=== PATIENT | male | born 1945 | race Caucasian/White ===

== ENCOUNTER 2019-12-10 01:15 | Day surgery (SDC) | payer MEDICARE, OTHER, SELFPAY ==
[2019-12-07 14:11] VITALS: BMI 27.1
[2019-12-10] VITALS (33 sets, daily range): BP systolic 94–164; BP diastolic 50–90; PULSE 54–81; RESP 11–18; TEMP 36.4–37; O2SAT 94–100
--- NOTE | 2019-12-10 07:17 | SUR.PREOP ---
Patient arrives to [facility] room [address] Perdomo, at bedside. Oriented to unit, procedure explained, all questions answered, IV started, labs drawn and sent, groin shaved, vitals obtained, and consent signed.
[2019-12-10 07:29] LABS: Basophils Absolute Auto 0.1 K/mm3 (0.0-0.1); Basophils Percent Auto 0.8 % (0.2-1.2); Eosinophils Absolute Auto 0.4 K/mm3 (0-0.3); Eosinophils Percent Auto 7.1 % (0-4.4); Hematocrit 45.1 % (42.0-52.0); Hemoglobin 14.9 g/dL (14.0-18.0); Immature Granulocyte Absolute 0.02 K/mm3 (0.00-0.031); Immature Granulocyte Percent A 0.3 % (0-0.5); Lymphocytes Absolute Auto 1.89 K/mm3 (0.9-3.2); Lymphocytes Percent Auto 31.4 % (18.3-44.2); Mean Corpuscular Hemoglobin 30.5 pg (26-34); Mean Corpuscular Volume 92.2 fl (80-100); Mean Platelet Volume 10.8 fl (7.4-10.4); Monocytes Absolute Auto 0.3 K/mm3 (0.1-0.6); Monocytes Percent Auto 5.3 % (2.6-8.5); Neutrophils Absolute Auto 3.3 K/mm3 (1.3-6.7); Neutrophils Percent Auto 55.1 % (45.5-73.1); Platelet Count Result 337 k/mm3 (150-375); Red Blood Count 4.89 M/mm3 (4.6-6.20); Red Cell Distribution Width 12.9 % (11.5-14.5)
[2019-12-10 07:39] LABS: Blood Urea Nitrogen 20 mg/dL (9-20); Carbon Dioxide 27 mmol/L (22-30); Chloride 101 mmol/L (98-107); Estimated CRCL calculation 67 ml/min; Estimated Glomerular Filt Rate > 60; Glucose 103 mg/dL (75-110); Potassium 4.3 mmol/L (3.4-5.0); Sodium 135 mmol/L (137-145)
--- NOTE | 2019-12-10 08:18 | PM.IMHP ---
H&P: HPI History of Present Illness Chief complaint: chest pain, CAD Narrative: Gaurang Pfeiffer is a 74 year old male with an established history of coronary artery disease. The patient is admitted today as an outpatient electively for follow-up coronary angiography because of the recent development of symptoms that are suspicious for an compatible with angina. His history of coronary artery disease dates back to May of 2013 at which time he underwent angioplasty and stenting of the LAD and obtuse marginal branch of circumflex. He did well but redeveloped symptoms and required intervention with stenting of the proximal right coronary artery in February of 2016. Since then he has done well for the last several years. He also has hypertension and dyslipidemia. The patient contacted the office by phone indicating that he is recently redeveloped X symptoms of exertional chest pain while a ambulating and shopping with his family. He indicated the symptoms were redo public aiding his previous ischemia. For this reason a follow-up angiogram was recommended and scheduled for today. Review of Systems Constitutional: Constitutional: Reports no additional constitutional complaints Eyes: Eyes: Reports no additional eye complaints ENT: Reports system reviewed and no additional complaints, except as documented Cardiovascular: Cardiovascular: Reports chest pain Respiratory: Respiratory: Reports dyspnea on exertion Gastrointestinal: Gastrointestinal: Reports no additional gastrointestinal complaints Genitourinary: Genitourinary: Reports no additional male genitourinary complaints Musculoskeletal: Musculoskeletal: Reports no additional musculoskeletal complaints Integumentary/Breasts: Skin/Breast: Reports system reviewed and no additional complaints, except as docu Neurologic: Reports system reviewed and no additional complaints, except as documented PMFSH Social History Social History Gender identity (if verbalized by the patient): Male Meds Home Medications and Allergies Home Medications Medication Instructions Recorded Confirmed Type allopurinol 300 mg PO DAILY 12/07/19 12/07/19 History aspirin 81 mg PO DAILY 12/07/19 12/07/19 History atorvastatin [Lipitor] 40 mg PO DAILY 12/07/19 12/07/19 History celecoxib [Celebrex] 100 mg PO BID 12/07/19 12/07/19 History lisinopril 20 mg PO DAILY 12/07/19 12/07/19 History nitroglycerin [Nitrostat] 0.4 mg SUBLINGUAL Q5M PRN 12/07/19 12/07/19 History Allergies Allergy/AdvReac Type Severity Reaction Status Date / Time Penicillins Allergy Unknown SWELLING Verified 09/10/13 10:13 Vital Signs Vital Signs - 24 hr 12/10/19 07:19 Temperature 36.5 C Pulse Rate 65 Respiratory Rate 18 Blood Pressure 137/86 Pulse Oximetry 99 Exam Const: General: comfortable and no acute distress HENMT: Mouth: Yes moist mucous membranes Eyes: Sclera: sclerae normal Pupils: Equal, round and reactive pupils present Neck: Neck: supple and no JVD Thyroid: thyroid normal Resp: Effort & Inspection: normal respiratory effort Auscultation: clear to auscultation bilaterally Cardio: Rate: regular rate Rhythm: regular rhythm Other: No murmur no gallop no rub GI: GI Palp: Yes Soft to palpation Auscultation: normal bowel sounds Skin: General skin exam: normal color Extrem: General: normal to inspection H&P: Results Labs Labs: Short CBC 12/10/19 Range/Units 07:12 WBC 6.0 (4.5-10.0) K/mm3 Hgb 14.9 (14.0-18.0) g/dL Hct 45.1 (42.0-52.0) % Plt Count 337 (150-375) k/mm3 BMP 12/10/19 07:12 Sodium 135 L Potassium 4.3 Chloride 101 Carbon Dioxide 27 BUN 20 Creatinine 0.90 Glucose 103 Calcium 10.0 Assessment and Plan Additional Plan Patient with known coronary artery disease and previous interventions in all major vessels as detailed above. Recent recurrence of exertional symptoms compatible with an concerning for ischemia Will proceed with
--- NOTE | 2019-12-10 08:32 | WPDMODSED ---
Moderate Sedation Note-Pt Data Patient Data Diagnosis: Coronary artery disease with previous PCI to the LAD, OM and proximal RCA. Recent onset of exertional symptoms concerning for ischemia Present Complaint: exertional chest pain Procedure to be performed/Plan: follow-up coronary angiography Allergies Allergy/AdvReac Type Severity Reaction Status Date / Time Penicillins Allergy Unknown SWELLING Verified 09/10/13 10:13 Home Medications Medication Instructions Recorded Confirmed Type allopurinol 300 mg PO DAILY 12/07/19 12/07/19 History aspirin 81 mg PO DAILY 12/07/19 12/07/19 History atorvastatin [Lipitor] 40 mg PO DAILY 12/07/19 12/07/19 History celecoxib [Celebrex] 100 mg PO BID 12/07/19 12/07/19 History lisinopril 20 mg PO DAILY 12/07/19 12/07/19 History nitroglycerin [Nitrostat] 0.4 mg SUBLINGUAL Q5M PRN 12/07/19 12/07/19 History Current Medications: Active Medications Sodium Chloride (Normal Saline Iv) 500 mls @ 100 mls/hr IV CONT .Q5H [facility] Sedation/Anesthesia: No previous sedation/anesthesia problems (including family history). [facility] Social History Social History Gender identity (if verbalized by the patient): Male Mod Sed Physical Exam Physical Exam Pre Procedural Exam: Normal: Appearance, Neck, Throat, Airway, Lungs, Heart Size, Heart Rate, Heart Rhythm, Neuro Exam and Extremities Hours since solid foods: 12 Hours since liquid intake: 12 Internal Medicine - PN: Obj Da Vital Signs Vital Signs: Vital Signs - 24 hr 12/10/19 07:19 Temperature 36.5 C Pulse Rate 65 Respiratory Rate 18 Blood Pressure 137/86 Pulse Oximetry 99 Meds/Results Medications: Active Medications Generic Name Dose Route Start Last Admin Trade Name Freq PRN Reason Stop Dose Admin Sodium Chloride 500 mls @ 100 mls/hr 12/10/19 06:15 Normal Saline Iv IV CONT .Q5H [facility] Labs CBC & Chem 7: 12/10/19 07:12 12/10/19 07:12 Labs: Laboratory Results - last 24 hr 12/10/19 12/10/19 12/10/19 07:12 07:12 07:12 WBC 6.0 RBC 4.89 Hgb 14.9 Hct 45.1 MCV 92.2 MCH 30.5 MCHC 33.0 RDW 12.9 Plt Count 337 MPV 10.8 H Immature Gran % (Auto) 0.3 Neut % (Auto) 55.1 Lymph % (Auto) 31.4 [place] % (Auto) 5.3 Eos % (Auto) 7.1 H Baso % (Auto) 0.8 Lymph # (Auto) 1.89 [place] # (Auto) 0.3 Eos # (Auto) 0.4 H Baso # (Auto) 0.1 Abs Immat Gran (auto) 0.02 Absolute Neuts (auto) 3.3 Absolute Nucleated RBC 0.0 Nucleated RBC % 0.0 PT 13.0 INR 1.0 Sodium 135 L Potassium 4.3 Chloride 101 Carbon Dioxide 27 BUN 20 Creatinine 0.90 Estim Creat Clear Calc 67 Estimated GFR > 60 Glucose 103 Calcium 10.0 ASA Classification/Sedation ASA Classification/Sedation ASA Class: II Emergent: No Risks: Risks, benefits and alternatives explained and patient/family accepted plan for sedation. Patient re-evaluated immediately prior to sedation.
--- NOTE | 2019-12-10 09:29 | ECG_ITS ---
Measurements Intervals [place] Rate: 57 P: 5 CA: 201 QRS: 3 QRSD: 142 T: 16 QT: 429 QTc: 418 Interpretive Statements SINUS BRADYCARDIA BORDERLINE AV CONDUCTION DELAY RIGHT BUNDLE BRANCH BLOCK ABNORMAL ECG Electronically Signed On 12-10-2019 9:58:07 MANAGER OF FINANCIAL by Gerardo Huang D.O.
--- NOTE | 2019-12-10 09:33 | WPDCARDPROC ---
Cardiac Cath Procedure Note Date of procedure:: 12/10/19 Performing physician:: Samir Perdomo MD Indication:: 74-year-old gentleman with coronary artery disease and recurrent anginal symptoms Brief clinical history:: patient with a history of CAD and previous stenting of the LAD, obtuse marginal circumflex and proximal right coronary artery. Patient has been doing well for a number of years and now was reporting exertional symptoms typical of recurrent ischemia Procedure Procedure performed:: left heart catheterization with left ventriculography and coronary angiography PCI with drug-eluting stent to the proximal LAD Sedation/Medication given:: fentanyl 50 mg Versed 2 mg case start time 8:46 a.m. case end time 9:26 a.m. sedation provided by Lety Galicia RN , trained observer Access site:: right femoral artery Estimated blood loss:: 20-30 cc Procedure note:: patient was brought and lab in the postabsorptive state where the right femoral triangle was prepared in usual fashion. Anesthesia was provided with 1% lidocaine infiltrated locally. Using the modified Seldinger technique a 5 Japanese vascular sheath was placed. After this left heart catheterization was carried out. A 5 Japanese angled pigtail catheter was used to measure left-sided hemodynamics and inject of LV g in the CAIN projection following this standard 5 Japanese FL4 catheter was used to inject the left coronary artery and a JR4 catheter to inject the right coronary artery. This any angiograms were then reviewed and PCI of the proximal LAD was recommended and carried out as detailed below. Prior to PCI the patient was systemically anticoagulated with Angiomax and received a loading dose of Brilinta 180 mg. Prior to anticoagulation the 5 Japanese sheath was switched over the guidewire for 6 Japanese device. Following PCI the sheath was sutured into position the patient was taken back to the holding area for post PCI recovery in stable condition there was no evidence of a groin hematoma upon leaving the director labor standards Findings:: central aortic pressure was 118/54 left ventricle 118/0 end-diastolic pressure of 12 there is no systolic gradient upon pullback across the aortic valve. The left main coronary artery is widely patent the LAD is a moderate caliber vessel extending down to around the apex there is visible stent material in the proximal LAD which is widely patent with no loss of lumen. Proximal to this however there is a severe area of atherosclerotic stenosis of 95-99% followed by modest stenosis leading up to the origin of the previously placed stent. The circumflex is a large caliber vessel giving rise to 2 marginal branches the 2nd of these has above visible stent material in it which is widely patent with no loss of lumen the right coronary artery is large in caliber dominant to the posterior circulation there are minimal luminal irregularities in the RCA the proximal RCA his visible stent material in it from prior previous intervention and again remains widely patent with no loss of lumen the left main coronary artery was engaged with a CLS 3.0 guiding catheter and the LAD was then crossed with a 0.014 BMW coronary guidewire. The lesion was pre-dilated using the 3.0 x 20 mm emerge balloon up to 10 atmospheres and then the balloon was withdrawn. The lesion was stented using the 3.0 by 22 mm EndorphMek drug-eluting stent which was then post dilated with a 3.5 by 15 mm noncompliant balloon at 16 atmospheres. The device was placed at the target lesion with slight overlap with the previously deployed stent. At the end of this the vessel was widely patent with no residual stenosis there was no evidence of dissection perforation or distal embolization. Conclusion:: Coronary artery disease with high-grade stenosis in the proximal LAD is described above previously placed stents in the LAD, OM circumflex and proximal right coronary arteries remain widely patent norm
[2019-12-10] MEDS: SODIUM CHLORIDE 0.9% IV 1,000 ML 125 ML IV CONT (12:20)
--- NOTE | 2019-12-10 12:26 | SUR.PHASEII ---
1225 6 FR SHEATH PULLED PER PROTOCOL BY JEAN VARGAS, FIRM MANUAL PRESSURE APPLIED, NO SIGNS OF BLEEDING OR HEMATOMA NOTED, WILL CONTINUE TO MONITOR.
--- NOTE | 2019-12-10 12:27 | SUR.PHASEII ---
0989 PATIENT RETURNS TO [facility] ROOM 5 POST LHC WITH 1 STENT TO THE PROX LAD, ANGIOMAX STILL RUNNING, 6 FR SHEATH SUTURED INTO RFA. NO BLEEDING OR HEMATOMA NOTED, WILL CONTINUE TO MONITOR.
--- NOTE | 2019-12-10 12:42 | SUR.PHASEII ---
1234 PATIENT HAD A SMALL VAGAL RESPONSE DURING SHEATH PULL, 1 MG ATROPINE ADMINISTERED, FLUIDS WIDE OPEN.
--- NOTE | 2019-12-10 13:58 | SUR.PHASEII ---
1255 hemostasis achieved, 1215 Hematoma noted w right groin check. Firm manual pressure applied. Dena Ontiveros NP notified. 1245 Off manual pressure, femstop applied for steady pressure until pt is seen by either Dena or Dr. Buitrago cont to monitor closely. Pt's at bedside.
--- NOTE | 2019-12-10 14:08 | SUR.PHASEII ---
1332 right groin bruit auscultated per malou charles.
[2019-12-10] MEDS: TRAMADOL HCL 50 MG TABLET PO (14:33)
--- NOTE | 2019-12-10 14:52 | SUR.PHASEII ---
1433 Tramadol 50 mg po given for lower back pain of a 3 on a scale of 1-10. Will continue to monitor closely.
--- NOTE | 2019-12-10 15:51 | SUR.PHASEII ---
1545 Femstop removed. Will continue to monitor closely.
--- NOTE | 2019-12-10 16:40 | SUR.PHASEII ---
Patient was having difficulty urinating, 16 fr caballero placed.
--- NOTE | 2019-12-10 17:02 | SUR.PHASEII ---
1600 see pcs for further documentation
[2019-12-10] MEDS: TICAGRELOR 90 MG TABLET PO (22:16)
[2019-12-11] VITALS: PULSE 69
[2019-12-11 02:00] VITALS: PULSE 59
[2019-12-11 04:00] VITALS: PULSE 56
--- NOTE | 2019-12-11 05:11 | ECG_ITS ---
Measurements Intervals [place] Rate: 54 P: 10 OR: 200 QRS: 18 QRSD: 141 T: 30 QT: 422 QTc: 401 Interpretive Statements SINUS BRADYCARDIA BORDERLINE AV CONDUCTION DELAY RIGHT BUNDLE BRANCH BLOCK ABNORMAL ECG Electronically Signed On 12-11-2019 7:09:14 HUC by Gerardo Huang D.O.
[2019-12-11 06:00] VITALS: PULSE 55
[2019-12-11] MEDS: TICAGRELOR 90 MG TABLET PO (07:19)
[2019-12-11 07:42] VITALS: PULSE 60
[2019-12-11 07:45] VITALS: BP 137/75; PULSE 60; RESP 12; O2SAT 100
--- NOTE | 2019-12-11 10:58 | PM.DS ---
DS: Diagnosis Admitting Diagnosis Admitting Diagnosis: Exertional angina with a history of known coronary artery disease previous interventions. Discharge Diagnosis (1) CAD (coronary artery disease): Qualifiers: Associated angina: without angina Coronary Disease-Associated Artery/Lesion type: [place] artery [place] vs. transplanted heart: [place] heart Qualified Code(s): I25.10 - Atherosclerotic heart disease of [place] coronary artery without angina pectoris Code(s): I25.10 - Atherosclerotic heart disease of [place] coronary artery without angina pectoris Status: Acute Assessment and Plan: Cardiac catheterization 12/10/2019: High-grade stenosis in the proximal LAD. Previously placed stents in the LAD, circumflex and proximal right coronary arteries remained widely patent. Normal left ventricular systolic function. (2) Presence of drug-eluting stent in anterior descending branch of left coronary artery: Code(s): Z95.5 - Presence of coronary angioplasty implant and graft Status: Acute Assessment and Plan: Successful PCI the proximal LAD using a 3 x 22 mm [place] drug-eluting stent. Continue aspirin, Brilinta and atorvastatin. DS: Summary Hospital Course Reason for hospitalization: Stable angina History of coronary artery disease Hospital Course: 74-year-old gentleman with coronary artery disease and recurrent anginal symptoms. He was brought to the cardiac catheterization lab with a significant findings of: High-grade stenosis in the proximal LAD. Previously placed stents in the LAD, obtuse marginal circumflex and proximal right coronary arteries remained widely patent. Normal left ventricular systolic function. He underwent successful PCI of the proximal LAD stenosis using a 3 x 22 mm [place] drug-eluting stent. Brilinta was added to his regimen. He was monitored overnight. He had no chest discomfort or shortness of breath. Right femoral site was without swelling or bleeding. Scant ecchymosis. No femoral bruit. Distal pulses intact. He was discharged home in stable and pain-free condition. Status at Discharge Functional status at discharge: independent ambulation Overall status at discharge: patient is back to baseline Time Spent with Patient Time attestation: Total time spent providing and/or coordinating discharge services: 35 minutes Time spent: Greater than 30 minutes Exam Const: General: cooperative and comfortable Orientation/consciousness: patient oriented x3 Limitations: no limitations HENMT: Head: normal to inspection Ears: hearing grossly normal bilaterally Eyes: General: appearance normal, both eyes and all related structures Neck: Neck: no JVD Chest: Chest palpation & inspection: normal inspection of the chest Resp: Effort & Inspection: normal respiratory effort and able to speak in complete sentences Auscultation: clear to auscultation bilaterally Cardio: Jugular venous distension: no JVD Rate: regular rate Rhythm: regular rhythm Peripheral pulses: Peripheral pulses 2+ throughout Other: Right femoral site without swelling or bleeding. Scant areas of ecchymosis. No femoral bruit. Distal pulses intact. GI: GI Palp: Yes Soft to palpation Auscultation: normal bowel sounds Skin: General skin exam: normal color Lesions: no lesions Rashes: no rashes Neuro: General: patient oriented x3 Cognition (Neuro): normal cognition Speech: normal speech Gait exam (Neuro): Normal gait present Extrem: General: normal to inspection and no pedal edema Psych: Appearance: grossly normal Mental Status: mental status grossly normal Speech and movement: Normal speech and movement present Affect: normal affect Attitude: cooperative Thought process: Normal thought process present Insight: Good insight present (Psych) Discharge Plan Discharge Patient Disposition: Home, Self-Care Discharge Instructions: ACTIVITY: No driving for 24 hours. No lifting, pushi
--- NOTE | 2019-12-11 12:06 | PC.NURSE ---
1130-pt given D/C orders and instructions. Questions answered and verbalized understanding. AOx4. Groin soft and non-tender, no evidence of bleeding or hematoma noted. Very limited bruising which has not changed. Strong right pedal pulse noted. Taken via wheelchair to waiting vehicle. no distress noted or vocalized at time of departure.
== END 2019-12-11 10:58 | disposition home or self-care (01) ==
LOC: ANHCATHLAB 07:00 → ANHCPC 16:40
PROVIDERS: Visit Provider Specialist
PROC: 4A023N7 Measurement of Cardiac Sampling and Pressure, Left Heart, Percutaneous Approach (ICD-10-PCS; CPT 93452; principal; 2019-12-10 08:30)
DX: I25.10 Atherosclerotic heart disease of native coronary artery without angina pectoris (principal); Z95.5 Presence of coronary angioplasty implant and graft; I10 Essential (primary) hypertension; E78.5 Hyperlipidemia, unspecified; Z79.82 Long term (current) use of aspirin
CPT/HCPCS: 36415; 80048; 85025; 85610; 93005; 93458; A9270; C1725; C1769; C1874; C1887; C1894; C9600; J0461; J0583; J1644; J2250; J3010; J7030; J7040

== ENCOUNTER 2020-02-04 08:30 | Outpatient (RCR) | payer MEDICARE, OTHER, SELFPAY ==
[2020-01-11 11:44] VITALS: PULSE 62
--- NOTE | 2020-02-06 09:24 | PCCPR ---
Program is temporarily suspended due to COVID outbreak.
--- NOTE | 2020-02-13 11:01 | PCCPR ---
Called patient in regards to the temporary closure of our department continuing until at least March 13. Patient is doing well. He states he has been doing a lot of home projects which means he is going up and down the stairs frequently to get tools and supplies. Encouraged at least 150 min of aerobic activity per week. He had no further questions. Patient provided us with an email address and we will email out temporary home exercise information. Will continue to follow patient weekly.
--- NOTE | 2020-02-20 09:40 | PCCPR ---
Called Dilip today to check in. Dilip stated that he did receive the exercise guidelines and is walking at home several days a week. He stated that he is doing well and staying home.
--- NOTE | 2020-02-26 10:05 | PCCPR ---
Spoke with Dilip states he is doing well. States he has been keeping busy doing things around the house mostly. He is push mowing the yard with a self propelled mower and on off days doing some walking outdoors as weather permits.He did get our package of materials however has not started any strength trng. He feels he has been plenty active. He denies taking any b/p reading or Hr encouraged to do so. explained a staff member will be trying to contact him weekly until we know more about being to resume our services.
--- NOTE | 2020-03-05 13:26 | PCCPR ---
Weekly update call-No questions or concerns at this time.
--- NOTE | 2020-03-12 13:01 | PCCPR ---
Weekly update call-informed patient of continued closure through the month of March due to the extension of the residential in place order. No questions at this time.
--- NOTE | 2020-03-27 12:50 | PCCPR ---
Starting Bi-Weekly Calls. Spoke with patient. No questions or concerns at this time.
--- NOTE | 2020-04-10 13:23 | PCCPR ---
Called Dilip today to check in regarding home exercise. He stated that he is feeling well and exercising on a regular basis, no questions at this time.
== END 2020-02-04 23:59 | disposition home or self-care (01) ==
LOC: ANHCPREHAB 08:30
PROVIDERS: Visit Provider Specialist
DX: Z95.5 Presence of coronary angioplasty implant and graft (principal)
CPT/HCPCS: 93798

== ENCOUNTER 2020-07-16 09:00 | Outpatient (RCR) | payer MEDICARE, OTHER, SELFPAY | END 2020-07-16 18:47 | disposition home or self-care (01) | LOC: ANHCPREHAB 09:00 | PROVIDERS: Visit Provider Specialist | DX: Z95.5 Presence of coronary angioplasty implant and graft (principal) | CPT/HCPCS: 93798 ==

== ENCOUNTER 2021-01-05 23:01 | Emergency (ER) | payer MEDICARE, OTHER, SELFPAY ==
--- NOTE | ~2021-01-05 | XR_ITS ---
EXAMINATION: XR chest 2V DATE: 01/05/2021 23:36 INDICATION: Left lateral chest wall pain. TECHNIQUE: Frontal and lateral views of the chest were obtained. COMPARISON: Chest 2 views 09/10/2013, CT abdomen and pelvis 04/05/2016 FINDINGS: The chest demonstrates clear lungs without pneumonia, pleural effusion, or pneumothorax. Th e heart size is normal. Surgical clips in the right upper quadrant are likely from cholecystectomy. IMPRESSION: 1. No acute cardiopulmonary disease. Reviewed, dictated and finalized at location A. GEMENT QUALITY CONSULTANT
[2021-01-05 23:05] VITALS: PULSE 69; RESP 18; O2SAT 98
--- NOTE | 2021-01-05 23:09 | ECG_ITS ---
Measurements Intervals [place] Rate: 66 P: 12 FL: 185 QRS: -17 QRSD: 136 T: 25 QT: 384 QTc: 405 Interpretive Statements SINUS RHYTHM RIGHT BUNDLE BRANCH BLOCK BASELINE ARTIFACT- I, II, AVR, V4-V6 ABNORMAL ECG Electronically Signed On 01-06-2021 7:54:14 YARDAGE ESTIMATOR by Gerardo Huang D.O.
[2021-01-05 23:10] VITALS: PULSE 71
[2021-01-05 23:17] VITALS: PULSE 65; RESP 15; O2SAT 97
[2021-01-05 23:20] LABS: Basophils Percent Auto 0.4 % (0.2-1.2); Eosinophils Absolute Auto 0.3 K/mm3 (0-0.3); Eosinophils Percent Auto 3.8 % (0-4.4); Hematocrit 46.5 % (42.0-52.0); Hemoglobin 15.2 g/dL (14.0-18.0); Immature Granulocyte Absolute 0.02 K/mm3 (0.00-0.031); Immature Granulocyte Percent A 0.3 % (0-0.5); Lymphocytes Absolute Auto 1.95 K/mm3 (0.9-3.2); Lymphocytes Percent Auto 24.7 % (18.3-44.2); Mean Corpuscular HGB Conc 32.7 g/dl (32-36); Mean Corpuscular Hemoglobin 30.9 pg (26-34); Mean Corpuscular Volume 94.5 fl (80-100); Mean Platelet Volume 10.5 fl (7.4-10.4); Monocytes Absolute Auto 0.4 K/mm3 (0.1-0.6); Monocytes Percent Auto 4.8 % (2.6-8.5); Neutrophils Absolute Auto 5.2 K/mm3 (1.3-6.7); Platelet Count Result 354 k/mm3 (150-375); Red Blood Count 4.92 M/mm3 (4.6-6.20); Red Cell Distribution Width 12.8 % (11.5-14.5); White Blood Count 7.9 K/mm3 (4.5-10.0)
[2021-01-05 23:32] LABS: Anion Gap 5 mmol/L (8-16); Blood Urea Nitrogen 22 mg/dL (9-20); Carbon Dioxide 29 mmol/L (22-30); Chloride 106 mmol/L (98-107); Estimated CRCL calculation 66 ml/min; Estimated Glomerular Filt Rate > 60; Glucose 121 mg/dL (75-110); Potassium 3.8 mmol/L (3.4-5.0); Sodium 140 mmol/L (137-145)
[2021-01-05 23:44] LABS: Troponin I < 0.012 ng/mL (0.000-0.034)
[2021-01-05 23:46] VITALS: PULSE 61; RESP 15; O2SAT 97
[2021-01-05 23:55] LABS: Alanine Aminotransferase 28 U/L (4-50); Albumin Level 4.1 g/dL (3.5-5.1); Alkaline Phosphatase 53 U/L (38-126); Aspartate Amino Transferase 29 U/L (17-59); Bilirubin,Total 0.4 mg/dL (0.2-1.3); Lipase 139 U/L (23-300)
[2021-01-06] VITALS (19 sets, daily range): BP systolic 133–172; BP diastolic 70–93; PULSE 59–66; RESP 10–19; O2SAT 95–100
[2021-01-06 00:03] LABS: NT Pro B Type Natriuretic Pept 52 PG/ML (5-100)
[2021-01-06 00:06] LABS: INR 0.9; Partial Thromboplastin Time 29.2 SECONDS (22.3-36.8)
--- NOTE | 2021-01-06 00:11 | ED.GENADULT ---
HPI - General Adult General Chief complaint: Chest Pain Stated complaint: chest pain/ tightness Time Seen by Provider: 01/05/21 23:14 History of Present Illness HPI narrative: Patient is a 75-year-old gentleman who presents the emergency department with chief complaint of chest discomfort. Patient reports this evening he started having some pressure in his chest. Patient reports he took some sublingual nitro and reported that ultimately the pain has essentially resolved by the time he is arrived in the ER. Patient reports he has prior history of cardiac disease and has several stents his last one was placed and November 2019. Related Data Home Medications Medication Instructions Recorded Confirmed allopurinol 300 mg PO DAILY 12/07/19 01/11/20 aspirin 81 mg PO DAILY 12/07/19 01/11/20 atorvastatin [Lipitor] 40 mg PO DAILY 12/07/19 01/11/20 lisinopril 20 mg PO DAILY 12/07/19 01/11/20 nitroglycerin [Nitrostat] 0.4 mg SUBLINGUAL Q5M PRN 12/07/19 01/11/20 acetaminophen [Acetaminophen Extra 500 mg PO Q6H PRN 01/11/20 01/11/20 Strength] docusate sodium [Dulcolax Stool 100 mg PO DAILY 01/11/20 01/11/20 Softener (dss)] tamsulosin [Flomax] 0.4 mg PO DAILY 01/11/20 01/11/20 Allergies Allergy/AdvReac Type Severity Reaction Status Date / Time Penicillins Allergy Unknown SWELLING Verified 01/05/21 23:09 Review of Systems Review of Systems: Narrative: A 10 system review of systems was completed on the patient and is negative except for what is stated in the HPI. Nursing and ancillary documentation was reviewed. [facility] Family History Family History Father Acute myocardial infarction Coronary artery disease involving coronary bypass graft Sibling Stented coronary artery Sibling Stented coronary artery Social History Social History Smoking packs per day: 1.5 Smoking cigarettes per day: 30.0 Years smoked: 15 Smoking pack-years: 22.50 Smoking status: Former smoker Tobacco type: cigarettes Gender identity (if verbalized by the patient): Male Comments Past medical history significant coronary artery disease hypertension and hyperlipidemia Exam Narrative: Exam Narrative: GENERAL: Well-appearing, well-nourished, and in no acute distress. HEAD: Normocephalic, atraumatic. EYES: PERRLA and EOMI. ENT: Nares clear, no rhinorrhea or epistaxis. Mucous membranes moist. NECK: Supple. CHEST: Clear to auscultation. No respiratory distress. HEART: Regular rate and rhythm. No murmur heard. Normal peripheral pulses. ABDOMEN: Soft, nontender, nondistended, normal active bowel sounds. EXTREMITIES: Normal range of motion. No edema. SKIN: Warm, dry, no rash. NEURO: No focal deficits. Alert and oriented x3. PSYCH: Normal mood and affect. Course Course Emergency Course: EKG shows sinus rhythm with a rate of 66 right bundle branch block. This is unchanged from previous EKGs there is no evidence of ST elevation or depression Vital Signs Vital signs: Vital Signs Pulse Rate 69 01/05/21 23:05 Respiratory Rate 18 01/05/21 23:05 Pulse Oximetry 98 01/05/21 23:05 Pulse Rate 60 01/06/21 02:15 Respiratory Rate 17 01/06/21 02:15 Blood Pressure 155/73 H 01/06/21 02:02 Pulse Oximetry 98 01/06/21 02:15 Medical Decision Making Vital Signs Vital Signs: Vital Signs Pulse Rate 69 01/05/21 23:05 Respiratory Rate 18 01/05/21 23:05 Pulse Oximetry 98 01/05/21 23:05 Pulse Rate 60 01/06/21 02:15 Respiratory Rate 17 01/06/21 02:15 Blood Pressure 155/73 H 01/06/21 02:02 Pulse Oximetry 98 01/06/21 02:15 Lab Data Result diagrams: 01/05/21 23:13 01/05/21 23:13 Labs: Lab Results 01/05/21 01/05/21 01/05/21 Range/Units 23:13 23:13 23:13 WBC 7.9 (4.5-10.0) K/mm3 RBC 4.92 (4.6-6.20) M/mm3 Hgb 15.2 (14.0-18.0)
[2021-01-06 02:43] LABS: Troponin I < 0.012 ng/mL (0.000-0.034)
== END 2021-01-06 02:55 | disposition home or self-care (01) ==
PROVIDERS: Emergency Provider Emergency Medicine
DX: R07.89 Other chest pain (principal); I51.9 Heart disease, unspecified; Z95.5 Presence of coronary angioplasty implant and graft; Z87.891 Personal history of nicotine dependence; Z79.82 Long term (current) use of aspirin; I45.10 Unspecified right bundle-branch block
CPT/HCPCS: 36415; 71046; 80048; 80076; 83690; 83880; 84484; 85025; 85610; 85730; 93005; 99284

== ENCOUNTER 2022-04-07 23:35 | Emergency (ER) | payer MEDICARE, OTHER, SELFPAY ==
--- NOTE | ~2022-04-07 | CT_ITS ---
EXAMINATION: CT abdomen pelvis w con DATE: 04/08/2022 02:19 INDICATION: Left flank pain. TECHNIQUE: Computed tomography (CT) of the abdomen and pelvis was performed with 75 mL Omnipaque 300 intravenous contrast. Automated exposure control and iterative reconstruction technique were employed . The dose-length product was 613.47 mGy-cm. COMPARISON: CT abdomen and pelvis 04/05/2016 FINDINGS: The visualized portions of the lung bases demonstrate mild atelectasis. No pleural effusion . The heart size is normal. There are coronary artery calcifications. No pericardial effusion. There are cysts in the liver measuring up to 17 mm. There are changes of cholecystectomy. The spleen, pancr eas, adrenal glands, and right kidney are normal. There is a delayed left-sided contrast nephrogram. There is mild left hydronephrosis. There is a 7 mm stone in proximal left ureter. The prostate is sev erely enlarged. There is diverticulosis of the colon without evidence of diverticulitis. The appendix is normal. There are no pathologically enlarged lymph nodes. There is no free intraperitoneal fluid. There is an umbilical hernia containing fat. There are a few scattered benign bone islands. There is severe thoracic and lumbar spondylosis. IMPRESSION: 1. 7 mm stone in proximal left ureter with mild left hydronephrosis. Reviewed, dictated and finalized at location A.
--- NOTE | ~2022-04-07 | XR_ITS ---
EXAMINATION: XR abdomen/kub 1V DATE: 04/08/2022 03:52 INDICATION: Ureterolithiasis. TECHNIQUE: A supine view of the abdomen on 2 radiographs was obtained. COMPARISON: CT abdomen and pelvis 04/08/2022 FINDINGS: There are no dilated loops of bowel. Surgical clips in the right upper quadrant are likely from cholecystectomy. There is contrast in the renal collecting system. There is a 7 mm stone in prox imal left ureter with mild left hydronephrosis. IMPRESSION: 1. 7 mm stone in proximal left ureter with mild left hydronephrosis. Reviewed, dictated and finalized at location A.
[2022-04-07 23:44] VITALS: BP 199/85; PULSE 71; RESP 20; TEMP 36.1; O2SAT 99
[2022-04-08] VITALS (8 sets, daily range): BP systolic 143–152; BP diastolic 61–73; PULSE 60–78; RESP 12–22; O2SAT 94–98
--- NOTE | 2022-04-08 00:22 | ED.ABDPAIN ---
HPI - Abdominal Pain General Chief Complaint: Abdominal Pain Stated Complaint: lt flank pain no radiation Time Seen by Provider: 04/08/22 00:06 Source: patient Mode of arrival: ambulatory Limitations: no limitations History of Present Illness HPI narrative: This is a 76 year old male that presents to the ER for left sided flank pain. Present over the last couple of hours. Reports the pain is sharp and constant in nature. Associated with nausea. No known alleviating or exacerbating factors. Denies fever, vomiting, dysuria, hematuria, or diarrhea. Related Data Home Medications Medication Instructions Recorded Confirmed allopurinol 300 mg tablet 300 mg PO DAILY 12/07/19 01/11/20 aspirin 81 mg chewable tablet 81 mg PO DAILY 12/07/19 01/11/20 atorvastatin 40 mg tablet (Lipitor) 40 mg PO DAILY 12/07/19 01/11/20 lisinopril 20 mg tablet 20 mg PO DAILY 12/07/19 01/11/20 nitroglycerin 0.4 mg sublingual 0.4 mg sublingual Q5M PRN Chest 12/07/19 01/11/20 tablet (Nitrostat) Pain acetaminophen 500 mg tablet 500 mg PO Q6H PRN Pain 01/11/20 01/11/20 (Acetaminophen Extra Strength) docusate sodium 100 mg capsule 100 mg PO DAILY 01/11/20 01/11/20 (Dulcolax Stool Softener (docusate)) tamsulosin 0.4 mg capsule (Flomax) 0.4 mg PO DAILY 01/11/20 01/11/20 Allergies Allergy/AdvReac Type Severity Reaction Status Date / Time Penicillins Allergy Unknown SWELLING Verified 01/05/21 23:09 Review of Systems Review of Systems: CONSTITUTIONAL: Denies fever GASTROINTESTINAL: Reports flank pain, nausea. Denies vomiting, or diarrhea. GENITOURINARY: Denies dysuria or hematuria. SKIN: Denies rash All systems reviewed & are unremarkable except as noted in HPI and below PMFSH Past Medical History Medical History (Updated 04/08/22 @ 03:10 by Dorothy Herr PA-C) CAD (coronary artery disease) Family History Family History Father Acute myocardial infarction Coronary artery disease involving coronary bypass graft Sibling Stented coronary artery Sibling Stented coronary artery Social History Social History Smoking packs per day: 1.5 Smoking cigarettes per day: 30.0 Years smoked: 15 Smoking pack-years: 22.50 Smoking status: Former smoker Tobacco type: cigarettes Gender identity (if verbalized by the patient): Male Exam Narrative: GENERAL: Well-appearing, well-nourished, and in no acute distress. HEAD: Normocephalic, atraumatic. EYES: EOMI. CHEST: Clear to auscultation. No respiratory distress. No wheezes rales or rhonchi HEART: Regular rate and rhythm. No murmur heard. Normal peripheral pulses. ABDOMEN: Soft, nontender, nondistended, normal active bowel sounds. No CVA tenderness EXTREMITIES: Normal range of motion. No edema. SKIN: Warm, dry, no rash. NEURO: No focal deficits. Alert and oriented x3. PSYCH: Normal mood and affect Course Consultations Consultation #1: Spoke with Dr. Park about patient and workup. Patient will be given pain medication and follow up for definitive management outpatient Date: 04/08/22 Vital Signs Vital signs: Vital Signs Temperature 97 F L 04/07/22 23:44 Pulse Rate 71 04/07/22 23:44 Respiratory Rate 20 04/07/22 23:44 Blood Pressure 199/85 H 04/07/22 23:44 Pulse Oximetry 99 04/07/22 23:44 Oxygen Delivery Room Air 04/07/22 23:44 Temperature 97 F L 04/07/22 23:44 Pulse Rate 60 04/08/22 03:18 Respiratory Rate 18 04/08/22 03:18 Blood Pressure 143/61 H 04/08/22 03:18 Pulse Oximetry 97 04/08/22 03:18 Oxygen Delivery Room Air 04/07/22 23:44 MDM - Abdominal Pain MDM Narrative Medical decision making narrative: Patient presents to the ER for left sided flank pain present since last night. He is afebrile and nontoxic appearing. Hypertensive upon arrival. This improved with treatment of pain. Otherwise vitals are stable
[2022-04-08] MEDS: ONDANSETRON INJ 4 MG/2 ML VIAL IV PUSH (00:42)
[2022-04-08] MEDS: MORPHINE SULFATE (*CRX) 2 MG/ML INJ IV PUSH (00:42)
[2022-04-08 00:53] LABS: Basophils Absolute Auto 0.1 K/mm3 (0.0-0.1); Basophils Percent Auto 0.6 % (0.2-1.2); Eosinophils Absolute Auto 0.2 K/mm3 (0-0.3); Eosinophils Percent Auto 2.9 % (0-4.4); Hematocrit 45.5 % (42.0-52.0); Hemoglobin 14.5 g/dL (14.0-18.0); Immature Granulocyte Absolute 0.03 K/mm3 (0.00-0.031); Immature Granulocyte Percent A 0.4 % (0-0.5); Lymphocytes Absolute Auto 1.51 K/mm3 (0.9-3.2); Lymphocytes Percent Auto 18.7 % (18.3-44.2); Mean Corpuscular HGB Conc 31.9 g/dl (32-36); Mean Corpuscular Hemoglobin 30.5 pg (26-34); Mean Corpuscular Volume 95.8 fl (80-100); Mean Platelet Volume 10.6 fl (7.4-10.4); Monocytes Absolute Auto 0.4 K/mm3 (0.1-0.6); Monocytes Percent Auto 4.6 % (2.6-8.5); Neutrophils Absolute Auto 5.9 K/mm3 (1.3-6.7); Neutrophils Percent Auto 72.8 % (45.5-73.1); Platelet Count Result 289 k/mm3 (150-375); Red Blood Count 4.75 M/mm3 (4.6-6.20); Red Cell Distribution Width 13.1 % (11.5-14.5); White Blood Count 8.1 K/mm3 (4.5-10.0)
[2022-04-08 01:07] LABS: Alanine Aminotransferase 21 U/L (6-50); Albumin Level 4.5 g/dL (3.5-5.1); Alkaline Phosphatase 70 U/L (38-126); Anion Gap 8 mmol/L (8-16); Aspartate Amino Transferase 29 U/L (17-59); Bilirubin,Total 0.9 mg/dL (0.2-1.3); Blood Urea Nitrogen 23 mg/dL (9-20); Calcium 9.8 mg/dL (8.4-10.2); Carbon Dioxide 25 mmol/L (22-30); Chloride 102 mmol/L (98-107); Estimated CRCL calculation 54 ml/min; Estimated Glomerular Filt Rate > 60; Glucose 151 mg/dL (65-110); Potassium 3.8 mmol/L (3.4-5.0); Sodium 135 mmol/L (137-145)
[2022-04-08 02:29] LABS: Appearance Urine Clear (Clear); Bilirubin Urine Negative (Negative); Blood Urine 3+ (Negative); Color Urine Yellow (Yellow); Glucose Urine UA Negative (Negative); Ketones Urine Negative (Negative); Leukocyte Esterase Ur Negative LEU/UL (Negative); Nitrate Urine Negative (Negative); Protein Urine Trace mg/dL (Negative); Specific Grav Ur >= 1.030 (1.001-1.035); Urobilinogen Urine 0.2 mg/dL (<2.0)
[2022-04-08 02:32] LABS: Mucus Urine Rare /lpf; RBC Urine 51-75 /hpf (0-2)
[2022-04-08 03:04] LABS: Add Urine Microscopic? YES
[2022-04-08] MEDS: MORPHINE SULFATE (*CRX) 4 MG/ML INJ IV PUSH (03:18)
--- NOTE | 2022-04-08 04:11 | PC.NURSE ---
vrbo erp yokasta calero beloit po stat
[2022-04-08] MEDS: HYDROcodone/acetaminophen (*CRX) 5-325 MG TABLET 1 TAB PO (04:14)
--- NOTE | 2022-04-08 17:05 | ECG_ITS ---
Measurements Intervals [place] Rate: 56 P: [place]: 0 QRS: 11 QRSD: 77 T: 245 QT: 418 QTc: 404 Interpretive Statements ATRIAL FLUTTER/TACHYCARDIA WITH SLOW VENTRICULAR RESPONSE INCOMPLETE RIGHT BUNDLE BRANCH BLOCK LOW QRS VOLTAGE IN PRECORDIAL LEADS BORDERLINE R WAVE PROGRESSION, ANTERIOR LEADS BORDERLINE ST-T WAVE ABNORMALITY- ANTEROLAT/INF LEADS BASELINE ARTIFACT- I, II, III, V3-V4 ABNORMAL ECG Electronically Signed On 04-09-2022 17:08:12 CDT by Gerardo Huang D.O.
== END 2022-04-08 04:20 | disposition home or self-care (01) ==
PROVIDERS: Emergency Provider Emergency Medicine
DX: N13.2 Hydronephrosis with renal and ureteral calculous obstruction (principal); I25.10 Atherosclerotic heart disease of native coronary artery without angina pectoris; Z79.82 Long term (current) use of aspirin
CPT/HCPCS: 36415; 74018; 74177; 80053; 81001; 85025; 87086; 93005; 96374; 96375; 96376; 99284; A9270; J0131; J2270; J2405; Q9967

== ENCOUNTER 2022-04-08 19:52 | Observation (INO) | payer MEDICARE, OTHER, SELFPAY ==
--- NOTE | ~2022-04-08 | XR_ITS ---
EXAMINATION: XR retrograde pyelo w/stent LT DATE: 04/09/2022 17:09 INDICATION: Left internal ureteral stent placement TECHNIQUE: Fluoroscopic images from a left internal ureteral stent placement are submitted for review . 49 seconds of fluoroscopy time. 8 fluoroscopic images. FINDINGS: There is a left double-J internal ureteral stent projecting in expected position, with proximal Blunt loop at the level of the renal pelvis and distal loop in the pelvis within the bladder lumen. IMPRESSION: 1. Left internal ureteral stent placement. Please refer to real-time procedural findings for detail s. Reviewed, dictated and finalized at location A. IMPRESSION: 1. Left internal ureteral stent placement. Please refer to real-time procedur al findings for details.
--- NOTE | ~2022-04-08 | XR_ITS ---
XR abdomen/kub 1V 04/08/2022 20:55 Indication: Urolithiasis Procedure: KUB Comparison: 04/08/2022 Findings: There are radiodensities overlying the right kidney, likely outside of the kidney.. There i s a proximal left ureteral stone at the L3-4 level measuring 10 x 5 mm. There is a second proximal le ft ureteral stone at the L4 level. Bowel gas pattern is nonobstructive. There are cholecystectomy cli ps. Moderate lumbar spondylosis. Impression: 1: Proximal left ureteral stones at the L3-L4 level. Reviewed, dictated and finalized at location A. Impression: 1: Proximal left ureteral stones at the L3-L4 level.
[2022-04-08 19:53] VITALS: BP 178/94; PULSE 75; RESP 18; TEMP 36.2; O2SAT 98
--- NOTE | 2022-04-08 20:54 | ED.ABDPAIN ---
HPI - Abdominal Pain General Chief Complaint: Abdominal Pain Stated Complaint: l flank pain Time Seen by Provider: 04/08/22 20:41 Source: patient Mode of arrival: ambulatory Limitations: no limitations History of Present Illness HPI narrative: This is a 76-year-old male that presents to the emergency department for left-sided flank pain radiating to the abdomen. Worsening this afternoon and into tonight. I evaluated patient in the ED last night and he was found to have a kidney stone. We had decided on outpatient follow up. Patient reports his pain worsened tonight and was unrelieved with oral pain medications which prompted him to be seen again. Denies fever, vomiting, dysuria, or hematuria. Related Data Home Medications Medication Instructions Recorded Confirmed allopurinol 300 mg tablet 300 mg PO DAILY 12/07/19 04/08/22 aspirin 81 mg chewable tablet 81 mg PO DAILY 12/07/19 04/08/22 atorvastatin 40 mg tablet (Lipitor) 40 mg PO DAILY 12/07/19 04/08/22 lisinopril 20 mg tablet 20 mg PO DAILY 12/07/19 04/08/22 nitroglycerin 0.4 mg sublingual 0.4 mg sublingual Q5M PRN Chest 12/07/19 04/08/22 tablet (Nitrostat) Pain acetaminophen 500 mg tablet 500 mg PO Q6H PRN Pain 01/11/20 04/08/22 (Acetaminophen Extra Strength) docusate sodium 100 mg capsule 100 mg PO DAILY PRN Constipation 01/11/20 04/08/22 (Dulcolax Stool Softener (docusate)) tamsulosin 0.4 mg capsule (Flomax) 0.4 mg PO DAILY 01/11/20 04/08/22 Allergies Allergy/AdvReac Type Severity Reaction Status Date / Time Penicillins Allergy Unknown SWELLING Verified 04/08/22 21:11 Review of Systems Review of Systems: CONSTITUTIONAL: Denies fever GASTROINTESTINAL: Reports abdominal pain. Denies nausea, vomiting GENITOURINARY: Denies dysuria or hematuria. All systems reviewed & are unremarkable except as noted in HPI and below PMFSH Past Medical History Medical History (Updated 04/09/22 @ 02:58 by Dorothy Herr PA-C) BPH (benign prostatic hyperplasia) CAD (coronary artery disease) Dyslipidemia Hypertension Presence of drug-eluting stent in anterior descending branch of left coronary artery Surgical History Surgical History (Updated 04/08/22 @ 22:59 by Kaylin Cabrera APRN) History of cholecystectomy Family History Family History Father Acute myocardial infarction Coronary artery disease involving coronary bypass graft Sibling Stented coronary artery Sibling Stented coronary artery Social History Social History Smoking packs per day: 1.5 Smoking cigarettes per day: 30.0 Years smoked: 15 Smoking pack-years: 22.50 Smoking status: Former smoker Alcohol intake: current Drinks per week: 1 Substance use: never Gender identity (if verbalized by the patient): Male Spiritual care concerns: No Exam Narrative: GENERAL: Well-appearing, well-nourished, and in no acute distress. HEAD: Normocephalic, atraumatic. EYES: EOMI. CHEST: Clear to auscultation. No respiratory distress. No wheezes rales or rhonchi HEART: Regular rate and rhythm. No murmur heard. Normal peripheral pulses. ABDOMEN: Soft, nondistended, normal active bowel sounds. Mild tenderness palpation throughout the left mid abdomen, without guarding. No CVA tenderness EXTREMITIES: Normal range of motion. No edema. SKIN: Warm, dry, no rash. NEURO: No focal deficits. Alert and oriented x3. PSYCH: Normal mood and affect Course Consultations Consultation #1: Spoke with Dr. Goldstein about patient and workup. Agrees with plan for admission for further pain control and possible procedure Date: 04/08/22 Consultation #2: Spoke with hospitalist about patient and workup who accepts admission Date: 04/08/22 Vital Signs Vital signs: Vital Signs Temperature 97.1 F L 04/08/22 19:53 Pulse Rate 75 04/08/22 19:53 Respiratory Rate 18 04/08/22 1
[2022-04-08] MEDS: ONDANSETRON INJ 4 MG/2 ML VIAL IV PUSH (21:18)
[2022-04-08] MEDS: MORPHINE SULFATE (*CRX) 4 MG/ML INJ IV PUSH (21:19)
[2022-04-08 21:22] LABS: Basophils Percent Auto 0.2 % (0.2-1.2); Eosinophils Percent Auto 0.3 % (0-4.4); Hematocrit 41.9 % (42.0-52.0); Hemoglobin 13.5 g/dL (14.0-18.0); Immature Granulocyte Absolute 0.03 K/mm3 (0.00-0.031); Immature Granulocyte Percent A 0.3 % (0-0.5); Lymphocytes Absolute Auto 0.69 K/mm3 (0.9-3.2); Mean Corpuscular HGB Conc 32.2 g/dl (32-36); Mean Corpuscular Hemoglobin 30.8 pg (26-34); Mean Corpuscular Volume 95.7 fl (80-100); Mean Platelet Volume 10.2 fl (7.4-10.4); Monocytes Absolute Auto 0.3 K/mm3 (0.1-0.6); Monocytes Percent Auto 3.4 % (2.6-8.5); Neutrophils Absolute Auto 8.8 K/mm3 (1.3-6.7); Neutrophils Percent Auto 88.8 % (45.5-73.1); Platelet Count Result 278 k/mm3 (150-375); Red Blood Count 4.38 M/mm3 (4.6-6.20); Red Cell Distribution Width 13.1 % (11.5-14.5); White Blood Count 9.9 K/mm3 (4.5-10.0)
[2022-04-08 21:32] LABS: Anion Gap 5 mmol/L (8-16); Blood Urea Nitrogen 20 mg/dL (9-20); Calcium 9.3 mg/dL (8.4-10.2); Carbon Dioxide 29 mmol/L (22-30); Chloride 103 mmol/L (98-107); Estimated CRCL calculation 57 ml/min; Estimated Glomerular Filt Rate > 60; Glucose 152 mg/dL (65-110); Sodium 137 mmol/L (137-145)
--- NOTE | 2022-04-08 22:54 | PM.IMHP ---
H&P: HPI History of Present Illness Date/Time: Patient was placed observation status for expected length of stay less than 23 hours for management, will plan to re-evaluate tomorrow for improvement. 04/08/22 22:54 Chief Complaint: Left flank pain Narrative: Mr. Pfeiffer is a 76-year-old gentleman who had initially presented to the emergency room early this morning with complaints of left flank pain. Patient underwent CT of the abdomen and pelvis and was noted to have 7 mm stone in the proximal left ureter with mild left hydronephrosis. Patient was sent home with pain medication and was told to follow-up with urology. Patient presented to the emergency room this evening stating that the pain had worsened and that was radiating up his left back and he thought that he needs to be re-evaluated. Patient had a KUB performed and it showed a 10 x 5 mm stone in the left proximal ureter and a 2nd proximal left ureteral stone at the level of L4. Urology was notified and they requested the patient be admitted overnight and monitored and patient would possibly have a procedure performed tomorrow. Patient states he was mildly nauseated when he arrived to the emergency room, but after receiving pain medication antiemetics he is feeling much improved. Patient denies any dysuria, hematuria, frequency, or urgency. Patient states that he has been monitoring his urine and he has not noticed any stones passing. Patient denies ever having history of kidney stones. Patient states he has a known history of coronary artery disease status post stent placement, hypertension, gout, dyslipidemia, and BPH. Patient states he has been taking all medications at home without any difficulty. Review of Systems Review of Systems: A 12 point review of systems was completed patient all pertinent positive and negative per HPI the remainder are unremarkable. [facility] Past Medical History Medical History (Updated 04/08/22 @ 22:59 by Kaylin Cabrera APRN) BPH (benign prostatic hyperplasia) CAD (coronary artery disease) Dyslipidemia Hypertension Presence of drug-eluting stent in anterior descending branch of left coronary artery Surgical History Surgical History (Updated 04/08/22 @ 22:59 by Kaylin Cabrera APRN) History of cholecystectomy Family History Family History Father Acute myocardial infarction Coronary artery disease involving coronary bypass graft Sibling Stented coronary artery Sibling Stented coronary artery Social History Social History Smoking packs per day: 1.5 Smoking cigarettes per day: 30.0 Years smoked: 15 Smoking pack-years: 22.50 Smoking status: Former smoker Tobacco type: cigarettes Gender identity (if verbalized by the patient): Male Meds Home Medications and Allergies Home Medications Medication Instructions Recorded Confirmed Type allopurinol 300 mg tablet 300 mg PO DAILY 12/07/19 01/11/20 History aspirin 81 mg chewable tablet 81 mg PO DAILY 12/07/19 01/11/20 History atorvastatin 40 mg tablet (Lipitor) 40 mg PO DAILY 12/07/19 01/11/20 History lisinopril 20 mg tablet 20 mg PO DAILY 12/07/19 01/11/20 History nitroglycerin 0.4 mg sublingual 0.4 mg sublingual Q5M PRN Chest 12/07/19 01/11/20 History tablet (Nitrostat) Pain ticagrelor 90 mg tablet (Brilinta) 90 mg PO Q12HR #60 tabs 12/11/19 01/11/20 Rx acetaminophen 500 mg tablet 500 mg PO Q6H PRN Pain 01/11/20 01/11/20 History (Acetaminophen Extra Strength) docusate sodium 100 mg capsule 100 mg PO DAILY 01/11/20 01/11/20 History (Dulcolax Stool Softener (docusate)) tamsulosin 0.4 mg capsule (Flomax) 0.4 mg PO DAILY 01/11/20 01/11/20 History hydrocodone 5 mg-acetaminophen 325 1 tablet PO Q6H PRN pain #20 tabs 04/08/22 Rx mg tablet Allergies Allergy/AdvReac Type Severity Reaction Status Date / Time Penicillins Allergy
[2022-04-08] MEDS: ASPIRIN 81 MG ENTERIC TABLET PO (22:55)
[2022-04-08] MEDS: TAMSULOSIN HCL 0.4 MG CAPSULE PO (22:55)
[2022-04-08] MEDS: FINASTERIDE 5 MG TABLET PO (22:55)
[2022-04-08] MEDS: SODIUM CHLORIDE 0.9% IV 1,000 ML 100 ML IV CONT (23:25)
--- NOTE | 2022-04-08 23:35 | ADMGEN ---
This patient, Gaurang Pfeiffer, was admitted to Medical Room 250-01. Patient/family oriented to hospital policies and general routines including ID bracelet, bed and alarms, visiting hours, pain management, procedures, bathroom and other care routines, personal items, smoking policy, room service/diet, and visiting hours. Information on how to activate the Rapid Response Team has been discussed. Patient/Family are encouraged to report perceived risks to care and to ask questions if they do not understand what they are told or what they should do.
[2022-04-08 23:43] VITALS: BMI 27.9
[2022-04-08 23:45] VITALS: BP 140/65; PULSE 63; RESP 16; TEMP 36.7; O2SAT 98
[2022-04-09] VITALS (13 sets, daily range): BP systolic 97–176; BP diastolic 56–90; PULSE 61–80; RESP 12–20; TEMP 36.2–36.6; O2SAT 93–98; BMI 28.2
[2022-04-09] MEDS: MORPHINE SULFATE (*CRX) 4 MG/ML INJ IV PUSH (05:20)
[2022-04-09] MEDS: ONDANSETRON INJ 4 MG/2 ML VIAL IV PUSH (05:45)
[2022-04-09 05:51] LABS: Basophils Percent Auto 0.3 % (0.2-1.2); Eosinophils Absolute Auto 0.1 K/mm3 (0-0.3); Eosinophils Percent Auto 0.9 % (0-4.4); Hematocrit 40.5 % (42.0-52.0); Hemoglobin 12.7 g/dL (14.0-18.0); Immature Granulocyte Absolute 0.02 K/mm3 (0.00-0.031); Immature Granulocyte Percent A 0.3 % (0-0.5); Lymphocytes Absolute Auto 1.47 K/mm3 (0.9-3.2); Lymphocytes Percent Auto 22.2 % (18.3-44.2); Mean Corpuscular HGB Conc 31.4 g/dl (32-36); Mean Corpuscular Hemoglobin 30.5 pg (26-34); Mean Corpuscular Volume 97.4 fl (80-100); Mean Platelet Volume 10.8 fl (7.4-10.4); Monocytes Absolute Auto 0.4 K/mm3 (0.1-0.6); Monocytes Percent Auto 5.9 % (2.6-8.5); Neutrophils Absolute Auto 4.7 K/mm3 (1.3-6.7); Neutrophils Percent Auto 70.4 % (45.5-73.1); Platelet Count Result 248 k/mm3 (150-375); Red Blood Count 4.16 M/mm3 (4.6-6.20); Red Cell Distribution Width 13.1 % (11.5-14.5); White Blood Count 6.6 K/mm3 (4.5-10.0)
[2022-04-09 06:03] LABS: Anion Gap 3 mmol/L (8-16); Blood Urea Nitrogen 16 mg/dL (9-20); Carbon Dioxide 30 mmol/L (22-30); Chloride 104 mmol/L (98-107); Estimated CRCL calculation 59 ml/min; Estimated Glomerular Filt Rate > 60; Glucose 117 mg/dL (65-110); Potassium 3.9 mmol/L (3.4-5.0); Sodium 137 mmol/L (137-145)
--- NOTE | 2022-04-09 10:37 | WPDURCON ---
Urology Consult Note HPI Date Seen: 04/09/22 Requesting Physician: Hui Cazares DO Primary Care Provider: CALVERT Consult Narrative Narrative: Gaurang Pfeiffer is a 76 year old male who presented to the ER on 04/08/22 shortly after midnight initially for acute onset of left flank pain, nausea. He was diagnosed with a left proximal ureteral stone measuring 7mm and sent home with Flomax and Pain medication and told to f/u with us. He had an appointment today with me in our office, unfortunately his pain became too severe for the oral pain medication and he came back to the ER late last night. His stone was re-imaged and had not changed in position. He is afebrile, WBC is 6.6, creatinine is 1.00, UA is not suggestive of a UTI and shows 3+ blood. A urine culture is pending at this time. He denies a history of kidney stones, hematuria, dysuria frequency, urgency or UTI's. He has however been seeing Dr. Erickson in Urology at [facility] for BPH and is on Finasteride and Flomax to control his symptoms. Review of Systems Cardiovascular: Comments: Denies Chest Pain Respiratory: Comments: Denies difficulty breathing. Gastrointestinal: Comments: Denies abdominal pain. C/O nausea. Genitourinary: Comments: C/O left flank pain PMFSH Past Medical History Medical History BPH (benign prostatic hyperplasia) CAD (coronary artery disease) Dyslipidemia Hypertension Presence of drug-eluting stent in anterior descending branch of left coronary artery Surgical History Surgical History History of cholecystectomy Family History Family History Father Acute myocardial infarction Coronary artery disease involving coronary bypass graft Sibling Stented coronary artery Sibling Stented coronary artery Social History Social History Smoking packs per day: 1.5 Smoking cigarettes per day: 30.0 Years smoked: 15 Smoking pack-years: 22.50 Smoking status: Former smoker Alcohol intake: current Drinks per week: 1 Substance use: never Gender identity (if verbalized by the patient): Male Spiritual care concerns: No Meds Home Medications and Allergies Home Medications Medication Instructions Recorded Confirmed Type allopurinol 300 mg tablet 300 mg PO DAILY 12/07/19 04/08/22 History aspirin 81 mg chewable tablet 81 mg PO DAILY 12/07/19 04/08/22 History atorvastatin 40 mg tablet (Lipitor) 40 mg PO DAILY 12/07/19 04/08/22 History lisinopril 20 mg tablet 20 mg PO DAILY 12/07/19 04/08/22 History nitroglycerin 0.4 mg sublingual 0.4 mg sublingual Q5M PRN Chest 12/07/19 04/08/22 History tablet (Nitrostat) Pain acetaminophen 500 mg tablet 500 mg PO Q6H PRN Pain 01/11/20 04/08/22 History (Acetaminophen Extra Strength) docusate sodium 100 mg capsule 100 mg PO DAILY PRN Constipation 01/11/20 04/08/22 History (Dulcolax Stool Softener (docusate)) tamsulosin 0.4 mg capsule (Flomax) 0.4 mg PO DAILY 01/11/20 04/08/22 History hydrocodone 5 mg-acetaminophen 325 1 tablet PO Q6H PRN pain #20 tabs 04/08/22 04/08/22 Rx mg tablet Allergies Allergy/AdvReac Type Severity Reaction Status Date / Time Penicillins Allergy Unknown SWELLING Verified 04/08/22 21:11 Vital Signs Vital Signs - 24 hr 04/08/22 19:53 04/08/22 23:45 04/09/22 04:46 Temperature 97.1 F L 98.1 F 97.8 F Pulse Rate 75 63 63 Respiratory Rate 18 16 16 Blood Pressure 178/94 H 140/65 110/56 L Pulse Oximetry 98 98 95 Oxygen Delivery Room Air 04/09/22 08:12 Temperature Pulse Rate Respiratory Rate 16 Blood Pressure Pulse Oximetry 95 Oxygen Delivery Room Air Exam Resp: Effort & Inspection: normal respiratory effort Cardio: Rate: regular rate GI: GI Palp: Yes Soft to palp
[2022-04-09] MEDS: SODIUM CHLORIDE 0.9% IV 1,000 ML 100 ML IV CONT (11:12)
--- NOTE | 2022-04-09 13:02 | WPDHPUPDATE1 ---
History and Physical Update Update Date/Time: 04/09/22 13:02 History and Physical has been reviewed, including an updated exam of the patient. There are NO changes in the patient's condition. Risks, benefits, and alternatives have been discussed and questions answered. Patient agrees to proceed with procedure.
--- NOTE | 2022-04-09 15:05 | PC.NURSE ---
Report called to Betty VARGAS Preop.
--- NOTE | 2022-04-09 15:15 | PC.NURSE ---
To OR via stretcher. at bedside. Voiding without difficulty.
--- NOTE | 2022-04-09 16:20 | WPDANESEPPF ---
Anes - Initial Pre Proc Eval Procedure: Operation Date: 04/09/22 16:00 Proposed Procedures p Cystoscopy, Left Retrograde Pyelogram, Left Stent Placement - Svitlana Ho MD Date/Time: 04/09/22 16:20 Surgeon: Hui Cazares DO Pre Op Diagnosis: Ureterolithiasis Patient Data Age: 76 Gender: M Height: 1.78 m Weight: 89.2 kg Last Vital Signs Temp 36.2 C L 04/09/22 15:25 Pulse 61 04/09/22 15:25 Resp 20 04/09/22 15:25 BP 164/73 H 04/09/22 15:25 Pulse Ox 95 04/09/22 15:25 O2 Del Method Room Air 04/09/22 15:25 Allergies Allergy/AdvReac Type Severity Reaction Status Date / Time Penicillins Allergy Unknown SWELLING Verified 04/08/22 21:11 Home Medications Medication Instructions Recorded Confirmed Type allopurinol 300 mg tablet 300 mg PO DAILY 12/07/19 04/08/22 History aspirin 81 mg chewable tablet 81 mg PO DAILY 12/07/19 04/08/22 History atorvastatin 40 mg tablet (Lipitor) 40 mg PO DAILY 12/07/19 04/08/22 History lisinopril 20 mg tablet 20 mg PO DAILY 12/07/19 04/08/22 History nitroglycerin 0.4 mg sublingual 0.4 mg sublingual Q5M PRN Chest 12/07/19 04/08/22 History tablet (Nitrostat) Pain acetaminophen 500 mg tablet 500 mg PO Q6H PRN Pain 01/11/20 04/08/22 History (Acetaminophen Extra Strength) docusate sodium 100 mg capsule 100 mg PO DAILY PRN Constipation 01/11/20 04/08/22 History (Dulcolax Stool Softener (docusate)) tamsulosin 0.4 mg capsule (Flomax) 0.4 mg PO DAILY 01/11/20 04/08/22 History hydrocodone 5 mg-acetaminophen 325 1 tablet PO Q6H PRN pain #20 tabs 04/08/22 04/08/22 Rx mg tablet Laboratory Tests 04/08/22 04/08/22 04/09/22 21:17 21:17 05: WBC 9.9 K/mm3 K/mm3 6.6 K/mm3 K/mm3 (4.5-10.0) (4.5-10.0) RBC 4.38 M/mm3 L M/mm3 4.16 M/mm3 L M/mm3 (4.6-6.20) (4.6-6.20) Hgb 13.5 g/dL L g/dL 12.7 g/dL L g/dL (14.0-18.0) (14.0-18.0) Hct 41.9 % L % 40.5 % L % (42.0-52.0) (42.0-52.0) MCV 95.7 fl fl 97.4 fl fl (80-100) (80-100) MCH 30.8 pg pg 30.5 pg pg (26-34) (26-34) MCHC 32.2 g/dl g/dl 31.4 g/dl L g/dl (32-36) (32-36) RDW 13.1 % % 13.1 % % (11.5-14.5) (11.5-14.5) Plt Count 278 k/mm3 k/mm3 248 k/mm3 k/mm3 (150-375) (150-375) MPV 10.2 fl fl 10.8 fl H fl (7.4-10.4) (7.4-10.4) Immature Gran % (Auto) 0.3 % % 0.3 % % (0-0.5) (0-0.5) Neut % (Auto) 88.8 % H % 70.4 % % (45.5-73.1) (45.5-73.1) Lymph % (Auto) 7.0 % L % 22.2 % % (18.3-44.2) (18.3-44.2) [place] % (Auto) 3.4 % % 5.9 % % (2.6-8.5) (2.6-8.5) Eos % (Auto) 0.3 % % 0.9 % % (0-4.4) (0-4.4) Baso % (Auto) 0.2 % % 0.3 % % (0.2-1.2) (0.2-1.2) Lymph # (Auto) 0.69 K/mm3 L K/mm3 1.47 K/mm3 K/mm3 (0.9-3.2) (0.9-3.2) [place] # (Auto) 0.3 K/mm3 K/mm3 0.4 K/mm3 K/mm3 (0.1-0.6) (0.1-0.6) Eos # (Auto) 0.0 K/mm3 K/mm3 0.1 K/mm3 K/mm3 (0-0.3) (0-0.3) Baso # (Auto) 0.0 K/mm3 K/mm3 0.0 K/mm3 K/mm3 (0.0-0.1) (0.0-0.1) Abs Immat Gran (auto) 0.03 K/mm3 K/mm3 0.02 K/mm3 K/mm3 (0.00-0.031) (0.00-0.031) Absolute Neuts (auto) 8.8 K/mm3 H K/mm3 4.7 K/mm3 K/mm3 (1.3-6.7) (1.3-6.7) Absolute Nucleated RBC 0.0 K/mm3 K/mm3 0.0 K/mm3 K/mm3 (0.0-0.012) (0.0-0.012) Nucleated RBC % 0.0 % % 0.0 % % (0.0-0.2) (0.0-0.2) Sodium 137 mmol/L mmol/L (137-145) Potassium 4.0 mmol/L mmol/L (3.4-5.0) Chloride 103 mmol/L mmol/L (98-107) Carbon Dioxide 29 mmol/L mmol/L (22-30) Anion Gap 5 mmol/L L mmol/L (8-16) BUN 20 mg/dL mg/dL (9-20) Creatinine 1.00 mg/dL mg/dL (0.7-1.3) Estim Creat Clear Calc 57 ml/min ml/min Estimated GFR > 60 (59 - ) Glucose 152 mg/dL H mg/dL (65-110) Calcium 9.3 mg/dL mg/dL (8.4-10.2) Magnesium 04/09/ 05:27 WBC RB
[2022-04-09] MEDS: LACTATED RINGERS 1,000 ML 30 ML IV CONT (16:27)
[2022-04-09] MEDS: ceFAZolin SODIUM 1 GM VIAL 2 GM IV PUSH (16:45)
[2022-04-09] MEDS: LIDOCAINE HCL 2% GEL UROJET 10 ML PKG MUCOUS MEM (16:58)
--- NOTE | 2022-04-09 17:08 | PM.DS ---
DS: Admitting Diagnosis Discharge Date 04/09/2022 Admitting Diagnosis left flank pain DS: Discharge Diagnosis Discharge Diagnosis (1) Ureterolithiasis: Code(s): N20.1 - Calculus of ureter Status: Inactive Assessment and Plan: Urology has been consult and appreciate further recommendations. Patient is already on Flomax at home so will continue with this current medication. Will keep patient NPO for any possible procedure in the a.m.. Will hydrate patient with IV fluids and have all urine strain to monitor for kidney stones. P.r.n. pain medication antiemetics have been ordered. (2) Hypertension: Code(s): I10 - Essential (primary) hypertension Status: Acute Assessment and Plan: Will resume patient's home medications once verified home medication list and adjust medications accordingly for optimal blood pressure control. (3) Dyslipidemia: Code(s): E78.5 - Hyperlipidemia, unspecified Status: Acute Assessment and Plan: Will resume patient's home statin once verified home medication list. DS: Summary Hospital Course Reason for hospitalization: Left flank pain Narrative: Mr. Pfeiffer is a 76-year-old gentleman who had initially presented to the emergency room early this morning with complaints of left flank pain.? Patient underwent CT of the abdomen and pelvis and was noted to have 7 mm stone in the proximal left ureter with mild left hydronephrosis.? Patient was sent home with pain medication and was told to follow-up with urology.? Patient presented to the emergency room this evening stating that the pain had worsened and that was radiating up his left back and he thought that he needs to be re-evaluated.? Patient had a KUB performed and it showed a 10 x 5 mm stone in the left proximal ureter and a 2nd proximal left ureteral stone at the level of L4.? Urology was notified and they requested the patient be admitted overnight and monitored and patient would possibly have a procedure performed tomorrow.? Patient states he was mildly nauseated when he arrived to the emergency room, but after receiving pain medication antiemetics he is feeling much improved.? Patient denies any dysuria, hematuria, frequency, or urgency.? Patient states that he has been monitoring his urine and he has not noticed any stones passing.? Patient denies ever having history of kidney stones. Patient states he has a known history of coronary artery disease status post stent placement, hypertension, gout, dyslipidemia, and BPH.? Patient states he has been taking all medications at home without any difficulty. Hospital Course: patient with left flank pain, Patient had a KUB performed and it showed a 10 x 5 mm stone in the left proximal ureter and a 2nd proximal left ureteral stone at the level of L4.? patient was seen by Urology and had Cystoscopy, left retrograde pyelogram, left ureteral stent insertion, patient remains clinically stable seen by Urology will discharge the patient today, patient will follow-up with urologist as outpatient and further recommendation to follow. Time Spent with Patient Time attestation: Total time spent providing and/or coordinating discharge services: Exam Narrative: Patient is comfortable, NAD HEENT: eyes are clear and none icteric LUNGS:CTA HEART: RR S1S2 ABD: BS+, Soft and nontender Lower extremities: no edema SKIN: nonjaundiced Neuro: grossly intact. DS: Data Data Completed and Pending Labs on day of discharge: Labs from last 24 hours 04/09/22 04/09/22 04/08/22 05:27 05:27 21:17 WBC 6.6 RBC 4.16 L Hgb 12.7 L Hct 40.5 L MCV 97.4 MCH 30.5 MCHC 31.4 L RDW 13.1 Plt Count 248 MPV 10.8 H Immature Gran % (Auto) 0.3 Neut % (Auto) 70.4 Lymph % (Auto) 22.2 [place] % (Auto) 5.9 Eos % (Auto) 0.9 Baso % (Auto) 0.3 Lymph # (Auto) 1.47 [place] # (Auto) 0.4 Eos # (Auto) 0.1 Baso # (Auto) 0.0 Abs Immat Gran (aut
--- NOTE | 2022-04-09 17:12 | W.PM.PROC2 ---
Procedure Note - Detailed Date of Procedure 04/09/22 Pre-op Diagnosis Left ureteral stone Post-op Diagnosis Same Procedure Performed Cystoscopy, left retrograde pyelogram, left ureteral stent insertion Surgeon Svitlana Ho MD Indications 7mm proximal ureteral stone Description of Procedure Informed consent was obtained. Patient taken the operating. He was given preoperative IV antibiotics. He was due see anesthesia. He was prepped draped normal sterile fashion in the dorsal lithotomy position. We inserted 22 F rigid cystoscope through urethra into the bladder. Inspection of the bladder which showed mild trabeculation. The patient did have bilobar prostatic hyperplasia. The patient had bilateral orthotopic ureteral orifices. We cannulated left ureteral orifice and there was a J-hook to his ureter, therefore a retrograde pyelogram was performed and then we were able to advance an angled Glidewire beyond the level the stone. We passed the 5 F angiographic catheter and retrograde pyelogram revealed moderate left hydronephrosis. Over the wire a 4.8 F x 28cm stent was inserted. There was a curl in the renal pelvis and a curl in the bladder. The bladder was emptied lidocaine was instilled patient was awakened taken recovery in stable condition Urine Output 200
[2022-04-09] MEDS: lisinopriL 20 MG TABLET PO (19:31)
== END 2022-04-09 19:40 | disposition home or self-care (01) ==
LOC: ANHED 20:46 → ANH2MED 22:57
PROVIDERS: Nurse Practitioner Adult Health; Physician Assistant; Urology; Admitting Provider Student in an Organized Health Care Education/Training Program; Emergency Provider Emergency Medicine; Visit Provider Student in an Organized Health Care Education/Training Program
PROC: (CPT 52352; principal; 2022-04-09 16:00)
DX: N20.1 Calculus of ureter (principal); Z79.82 Long term (current) use of aspirin; I25.10 Atherosclerotic heart disease of native coronary artery without angina pectoris; E78.5 Hyperlipidemia, unspecified; I10 Essential (primary) hypertension; N40.0 Benign prostatic hyperplasia without lower urinary tract symptoms; Z87.891 Personal history of nicotine dependence
CPT/HCPCS: 52332; 36415; 74018; 74177; 74420; 80048; 80053; 83735; 85025; 87086; 93005; 96361; 96374; 96375; 96376; 99285; A9270; C1769; C1887; C2617; G0378; J0131; J0690; J1100; J2250; J2270; J2405; J2704; J3010; J7030; J7120; Q9967

== ENCOUNTER 2022-04-28 09:22 | Outpatient (CLI) | payer MEDICARE, OTHER, SELFPAY ==
--- NOTE | ~2022-04-28 | XR_ITS ---
XR abdomen/kub 1V DATE: 04/28/2022 09:38 INDICATION: Left ureteral stone follow-up TECHNIQUE: AP projection, 2 views COMPARISON: 04/08/2022 KUB FINDINGS: Left internal urinary stent is noted, proximal pigtail overlying the approximate position o f the left renal pelvis, the distal pigtail overlying the right side of the urinary bladder. Previously noted calcified calculi of left ureter on 04/08/2022 are now situated in the lower pole lef t kidney. Status post cholecystectomy. No evidence of bowel obstruction. IMPRESSION: Left internal urinary stent Calcified calculi in lower pole of left kidney Reviewed, dictated and finalized at [facility]. Reviewed, dictated and finalized at [facility].
== END 2022-04-28 09:23 | disposition home or self-care (01) ==
PROVIDERS: Visit Provider Urology
DX: N20.1 Calculus of ureter (principal)
CPT/HCPCS: 74018

== ENCOUNTER 2022-05-12 10:50 | Outpatient (CLI) | payer MEDICARE, OTHER, SELFPAY ==
--- NOTE | ~2022-05-12 | XR_ITS ---
EXAMINATION: XR abdomen/kub 1V INDICATION: Left ureteral stone TECHNIQUE: Supine views of the abdomen were obtained on 2 radiographs. COMPARISON: 04/28/2022 FINDINGS: A left internal ureteral stent is in expected position. There are two adjacent stones of th e left kidney lower pole which measure 6 mm and 4 mm. No definite additional urolithiasis is identifi ed. Surgical clips in the right upper quadrant are likely from prior cholecystectomy. The bowel gas p attern is normal. There is severe lower lumbar spondylosis. IMPRESSION: 1. Left internal ureteral stent in expected location with stable left nephrolithiasis. Reviewed, dictated and finalized at location [facility]. IMPRESSION: 1. Left internal ureteral stent in expected location with stable left nephrolit hiasis.
== END 2022-05-12 10:51 | disposition home or self-care (01) ==
PROVIDERS: Visit Provider Urology
DX: N20.1 Calculus of ureter (principal); Z96.0 Presence of urogenital implants
CPT/HCPCS: 74018

== ENCOUNTER 2022-05-14 10:42 | Outpatient (CLI) | payer MEDICARE, OTHER, SELFPAY | END 2022-05-14 10:43 | disposition home or self-care (01) | LOC: ANHSURGERY 10:46 | PROVIDERS: Visit Provider Urology | DX: N20.1 Calculus of ureter (principal); Z01.818 Encounter for other preprocedural examination | CPT/HCPCS: 87086 ==

== ENCOUNTER 2022-05-19 01:09 | Day surgery (SDC) | payer MEDICARE, OTHER, SELFPAY ==
[2022-05-14 08:14] VITALS: BMI 26.6
--- NOTE | 2022-05-14 08:23 | PC.NURSE ---
Report to the Outpatient Waiting Room, entrance under the green pavilion located off [facility], at time _1200_ on date _05/19/22_. OR Time: _2 PM_. - You and your visitor will be asked a series of questions to screen for COVID 19 for your protection. - Only one visitor is allowed at this time. - The patient visitor is requested to leave or wait in car when not with patient. - A mask is required within the hospital. Patients may have clear liquids (water, carbonated beverages, clear teas, apple juice) until 3 hours prior to surgery (1100 AM) with a maximum of 20 ounces. - No food from midnight until time of surgery Take the following medications with a SIP of water the morning of surgery: _PAIN PILL IF NEEDED__ Medications to discontinue per physician ____PT HAS STOPPED ASPIRIN - MARCH 2022 Date to take last dose Please no deodorant, or body powder the day of surgery. No jewelry (including any body piercings) or valuables the day of surgery, leave them at home. Please take a shower or bath the night before, or the morning of, surgery with an antibacterial soap. Wear comfortable, loose fitting clothing. - Jewelry must be removed prior to entering the operating room. Rings and piercings that are not removed may be cut off. - The hospital will not accept responsibility for valuables. - Please leave all valuables, including medications, at home the day of surgery. If you are going home after surgery, a licensed van cdl driver must drive you home. - NO public transportation without another adult. - We recommend that an adult stay with you for 24 hours following discharge. - We also recommend that you do not drive, make important decision, drink alcoholic beverages, or take any drugs that were not prescribed by your health care provider for at least 24 hours after your discharge time. Follow any additional instructions given to you from your surgeon. If you or anyone in your household have experienced Covid symptoms in the past week, please notify your surgeon or the nurse liaison at the phone number below for possible testing. Telephone instructions given to ____PT and asked if any additional questions and then verbalized understanding. Patient advised to call surgeon office or pre surgery nurse liaison [phone] if any additional questions.
--- NOTE | 2022-05-18 14:19 | WPDANESEPPF ---
Anes - Initial Pre Proc Eval Procedure: Operation Date: 05/19/22 14:00 Proposed Procedures p Cystoscopy, Left Ureteroscopy, Left Retrograde Pyelogram, Left Stone Extraction, Possible Left Stent Placement, Possible Holmium Laser Procedure - Svitlana Ho MD Date/Time: 05/18/22 14:19 Surgeon: Svitlana Ho MD Pre Op Diagnosis: left renal stone Patient Data Age: 76 Gender: M Height: 1.78 m Weight: 84.09 kg Allergies Allergy/AdvReac Type Severity Reaction Status Date / Time Penicillins Allergy Severe SWELLING Verified 05/19/22 12:43 Home Medications Medication Instructions Recorded Confirmed Type allopurinol 300 mg tablet 300 mg PO QAM 12/07/19 05/14/22 History aspirin 81 mg chewable tablet 81 mg PO DAILY 12/07/19 05/14/22 History atorvastatin 40 mg tablet (Lipitor) 40 mg PO QAM 12/07/19 05/14/22 History lisinopril 20 mg tablet 20 mg PO QAM 12/07/19 05/14/22 History nitroglycerin 0.4 mg sublingual 0.4 mg sublingual Q5M PRN Chest 12/07/19 05/14/22 History tablet (Nitrostat) Pain acetaminophen 500 mg tablet 500 mg PO Q6H PRN Pain 01/11/20 05/14/22 History (Acetaminophen Extra Strength) tamsulosin 0.4 mg capsule (Flomax) 0.4 mg PO HS 01/11/20 05/14/22 History hydrocodone 5 mg-acetaminophen 325 1 tablet PO Q6H PRN pain #20 tabs 04/08/22 05/14/22 Rx mg tablet finasteride 5 mg tablet 5 mg PO HS 05/14/22 05/14/22 History Patient hx anesthesia problems: none Family hx anesthesia problems: none Results Review: All pre-operative results and documents have been reviewed as part of the pre-operative evaluation. [facility] Past Medical History Medical History BPH (benign prostatic hyperplasia) CAD (coronary artery disease) Dyslipidemia Hypertension Presence of drug-eluting stent in anterior descending branch of left coronary artery Surgical History Surgical History History of cholecystectomy Family History Family History Father Acute myocardial infarction Coronary artery disease involving coronary bypass graft Sibling Stented coronary artery Sibling Stented coronary artery Social History Social History Smoking packs per day: 1.5 Smoking cigarettes per day: 30.0 Years smoked: 15 Smoking pack-years: 22.50 Smoking status: Former smoker Tobacco type: cigarettes Second hand tobacco smoke exposure: No Smoking end date: 11/14/77 Alcohol intake: current Drinks per week: 1 Substance use: never Substance use type: does not use Living arrangements: with family Gender identity (if verbalized by the patient): Male Spiritual care concerns: No Anes - Eval Final PreProcedure Day of Procedure 05/18/22 14:19 Patient weight: normal Heart: regular rate and rhythm Lungs: clear to auscultation Airway: Mallampati scale class II Neurological: alert and oriented Last oral intake: >/= 8 hours ASA classification: III Emergent: no Anesthetic plan: proceed Anesthesia type and monitoring: general LMA and standard monitoring Results Review: All pre-operative results and documents have been reviewed as part of the pre-operative evaluation. Informed Consent: The patient's anesthetic plan and its attendant risks and benefits were discussed with the patient/family/POA. Questions were solicited and answers provided to the satisfaction of the patient/family/POA.
--- NOTE | ~2022-05-19 | XR_ITS ---
XR abdomen/kub 1V 05/19/2022 12:36 Indication: Ureteral stent placement Procedure: KUB Comparison: Comparison to multiple prior studies sequentially, with oldest reviewed study dated 04/08. Findings: Bowel gas pattern nonobstructive. Moderate colonic fecal loading. There is a left internal ureteral stent present. There are left renal stones. There are cholecystectomy clips. There is severe lumbar spondylosis. No acute osseous abnormality. 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 Impression: 1: Left nephrolithiasis. Reviewed, dictated and finalized at location [facility]. Impression: 1: Left nephrolithiasis.
--- NOTE | ~2022-05-19 | XR_ITS ---
EXAMINATION: XR retrograde pyelo w/stent LT DATE: 05/19/2022 15:35 CDT INDICATION: LT RETRO/STENT placed/stone extraction . TECHNIQUE: 3 fluoroscopic images of the left abdomen and pelvis were obtained during left retrograde pyelography, stone extraction, and stent placement performed by the surgeon. I was not present in the operating room. Fluoroscopy exposure time was 89.1 seconds. Cumulative dose was 1.06 mGy. COMPARISON: X-ray abdomen 05/19/2022 FINDINGS: Cannulation of the left ureter with contrast filling a mildly dilated collecting system and stent dep loyment, in good position. IMPRESSION: Fluoroscopic documentation of left retrograde pyelography, stone extraction, and stent placement. Ple ase refer to the operative note for complete procedural details . Reviewed, dictated and finalized at [facility]. IMPRESSION: Fluoroscopic documentation of left retrograde pyelography, stone extraction, an d stent placement. Please refer to the operative note for complete procedural d etails .
[2022-05-19 12:17] VITALS: BP 132/73; PULSE 62; RESP 16; TEMP 36.2; O2SAT 100
--- NOTE | 2022-05-19 12:22 | WPDHPUPDATE1 ---
History and Physical Update Update Date/Time: 05/19/22 12:22 History and Physical has been reviewed, including an updated exam of the patient. There are NO changes in the patient's condition. Risks, benefits, and alternatives have been discussed and questions answered. Patient agrees to proceed with procedure. plan left ureteroscopy, laser lithotropsy, retrograde pyelogram, stone extraction and stent exchange
--- NOTE | 2022-05-19 12:41 | SUR.PREOP ---
1230 taken to xray for kub and returned to pre op room.
[2022-05-19] MEDS: ACETAMINOPHEN 500 MG TABLET 1000 MG PO (12:50)
[2022-05-19] MEDS: LACTATED RINGERS 1,000 ML 30 ML IV CONT ×2 (13:26→16:29)
[2022-05-19] MEDS: ceFAZolin 2 GM/D5W 50 ML 2 GM/50 ML BAG IVPB (15:25)
[2022-05-19] MEDS: LIDOCAINE HCL 2% GEL UROJET 10 ML PKG MUCOUS MEM (16:22)
--- NOTE | 2022-05-19 16:26 | P.OP_ITS ---
Procedure Note - Detailed Date of Procedure 05/19/22 Pre-op Diagnosis left renal stone Post-op Diagnosis Same Procedure Performed Cystoscopy, left ureteroscopy, laser lithotripsy, retrograde pyelogram, stent exchange Surgeon Svitlana Ho MD Indications Residual left renal stones Findings Clearance of stones from left collecting system Description of Procedure Informed consents obtained. Patient taken the operating. He was given pre operative IV antibiotics. He was induced anesthesia. He was placed in the dorsal lithotomy position. He was prepped draped normal sterile fashion. We inserted a 20 F cystoscope through the urethra into the bladder patient did have bilobar prostatic hyperplasia. Inspection of the bladder revealed the stent in the left ureteral orifice it was grasped and pulled to the meatus. We inserted a wire through the stent and then We then achieved 2 wire access over an 810 coaxial dilator. Then advanced a flexible ureteroscope to links the ureter further up to the renal pelvis with no residual stones. Over wire with them passed a 11x13 F access sheath. We then performed flexible ureteroscopy and identified stones in the midpole and lower pole calices. The stones were too big to remove and were therefore fragmented with the laser fiber into smaller fragments. We then remove fragments with a 0 tip Nitinol basket. After all fragments removed we then inspected each calyx under fluoroscopic guidance to ensure there were no residual stones. Inspected each calyx and the length of the ureter and no stones were seen. Retrograde pyelogram revealed no extravasation. Over wire placed a 6 F variable length stent with curl in renal pelvis and curl in the bladder. The bladder was emptied 10cc lidocaine were instilled the patient was awakened taken to PACU Pathology Yes Complications No immediate complications Condition Stable Disposition PACU
[2022-05-19 16:29] VITALS: BP 142/62; PULSE 63; RESP 12; TEMP 37.3; O2SAT 100
[2022-05-19 16:40] VITALS: BP 145/65; PULSE 66; RESP 12; O2SAT 100
[2022-05-19 16:55] VITALS: BP 150/64; PULSE 76; RESP 14; O2SAT 99
[2022-05-19 17:01] VITALS: BP 152/69; PULSE 72; RESP 20
[2022-05-19 17:35] VITALS: BP 150/70; PULSE 66; RESP 12
== END 2022-05-19 17:40 | disposition home or self-care (01) ==
PROVIDERS: Visit Provider Urology
PROC: (CPT 52352; principal; 2022-05-19 14:00)
DX: N20.0 Calculus of kidney (principal); I10 Essential (primary) hypertension; E78.5 Hyperlipidemia, unspecified
CPT/HCPCS: 52356; 74018; 74420; 82365; 88300; A9270; C1769; C1894; C2617; J0690; J1100; J2250; J2405; J2704; J3010; J7120; Q9966

== ENCOUNTER 2022-06-15 13:18 | Outpatient (CLI) | payer MEDICARE, OTHER, SELFPAY ==
--- NOTE | ~2022-06-15 | XR_ITS ---
EXAM: XR abdomen/kub 1V DATE: 06/15/2022 13:38 HISTORY: LEFT URETERAL STONE, f/u [facility] x 1 month ago . COMPARISON: 05/19/2022. FINDINGS: Cholecystectomy clips. Interval left ureteral stent removal. Clear lung bases. Normal bowel gas pattern. No organomegaly. Left lower pole calculi no longer visualized. Stable punctate right ca lculi. Severe degenerative lumbar change. IMPRESSION: Left inferior pole calculi no longer visualized. Left ureteral stent removal. Reviewed, dictated and finalized at location [facility]. IMPRESSION: Left inferior pole calculi no longer visualized. Left ureteral sten t removal.
== END 2022-06-15 13:19 | disposition home or self-care (01) ==
LOC: ANHIMG 13:22
PROVIDERS: Visit Provider Urology
DX: N20.1 Calculus of ureter (principal)
CPT/HCPCS: 74018

== ENCOUNTER 2023-01-25 09:54 | Outpatient (CLI) | payer MEDICARE, OTHER, SELFPAY ==
--- NOTE | ~2023-01-25 | XR_ITS ---
Supine views of the abdomen Clinical history: Left ureteral stone COMPARISON: 06/15/2022 Findings: Bowel gas pattern is nonspecific. No evidence for obstruction or free air. No abnormal mass lesion or calcification is seen. Osseous structures are intact. Impression: No significant abnormality is seen. Reviewed, dictated and finalized at [facility]. Impression: No significant abnormality is seen.
== END 2023-01-25 09:55 | disposition home or self-care (01) ==
PROVIDERS: Visit Provider Urology
DX: N20.1 Calculus of ureter (principal)
CPT/HCPCS: 74018

== ENCOUNTER 2024-07-26 11:48 | Outpatient (CLI) | payer MEDICARE, OTHER, SELFPAY ==
--- NOTE | ~2024-07-26 | XR_ITS ---
XR abdomen/kub 1V Ordering provider: Svitlana Ho MD History: . CALCIUM KIDNEY STONE FU . Comparison: None. FINDINGS: BOWEL: Nonobstructive bowel gas pattern. ORGANOMEGALY: None. Status post cholecystectomy. SIGNIFICANT PATHOLOGIC CALCIFICATIONS: None. OTHER: No free air is seen under the diaphragm. Degenerative changes of the spine. Pubic symphysitis. IMPRESSION: NO ACUTE ABDOMINAL FINDINGS. Reviewed, dictated and finalized at location [facility].
== END 2024-07-26 11:49 | disposition home or self-care (01) ==
LOC: ANHIMG 11:55
PROVIDERS: Visit Provider Urology
DX: N20.0 Calculus of kidney (principal)
CPT/HCPCS: 74018

== ENCOUNTER 2025-07-22 11:17 | Outpatient (CLI) | payer MEDICARE, OTHER, SELFPAY ==
--- NOTE | ~2025-07-22 | XR_ITS ---
EXAMINATION: XR abdomen/kub 1V DATE: 07/22/2025 11:39 INDICATION: Left ureteral stone TECHNIQUE: A supine view of the abdomen on 2 radiographs was obtained. COMPARISON: 07/26/2024 FINDINGS: No evident urolithiasis. Cholecystectomy clips in right upper quadrant. Thoracic with metallic clips in right upper quadrant consistent with acute mesenteric fat consistent. Additional atherosclerotic calcifications along the splenic artery, at the bilateral internal iliac arteries in the pelvis and at the bilateral femoral vein to the proximal thighs. Lung bases are clear. Heart size is normal. Moderate to severe and thoracic and lumbar spondylosis. IMPRESSION: 1. No evident urolithiasis. Reviewed, dictated and finalized at location A. IMPRESSION: 1. No evident urolithiasis.
--- OUTSIDE RECORDS SUMMARY | 2025-07-22 11:43 | XMS_ITS | Clinical Summary ---
Author Organization [facility] Address [address] [place] [address] Care Team Providers Care Servicenow Administrator Developer Name Role Phone Unavailable Primary Care Provider Unavailabl e Source Comments [facility],non-owned Affiliates and Associated Physician Practices is amultiple site organization consisting of ambulatory clinics and hospital sitesin [place], [place] and [place]. This disclosure is being madepursuant to the Care Everywhere program and may not contain all information available regarding this patient. Last updated 18.[facility] [employer] Social History Tobacco Use Types Packs/Day Years Used Date Smoking Tobacco: Never Assessed Sex and Gender Information Value Date Recorded Sex Assigned at Not on file Legal Sex Male 7:16 PM [employer] Gender Identity Not on file Sexual Orientation Not on file Plan of Treatment Health Maintenance Due Date Last Done Comments MEDICARE AWV 12 MONTHS 1945 HEPATITIS C SCREENING 10/07/1965 DTAP/TDAP/TD VACCINES (1 - Tdap) 1966 PNEUMOCOCCAL VACCINE 50+ (1 of 1 - PCV) 1997 ZOSTER VACCINE (1 of 2) 1997 Respiratory Syncytial Virus (RSV) Vaccine Pt: or over 60 yrs (1 - 1-dose 75+ series) 2022 DEPRESSION SCREENING 11/14/2024 COVID-19 VACCINE (1 - 2023-2 5 season) 2025 INFLUENZA VACCINE (#1) 2025 HEPATITIS B VACCINE Aged Out No longe r eligible based on patient's age to complete this topic HIB VACCINE Aged Out No longer eligi ble based on patient's age to complete this topic HPV VACCINE Aged Out No longer eligi ble based on patient's age to complete this topic MENINGOCOCCAL (Group B) VACC INE SHARED DECISION-MAKING Aged Out No longer eligibl e based on patient's age to complete this topic MENINGOCOCCAL GROUPS A/C/Y/W VACCINE Aged Out No longer eligible b ased on patient's age to complete this topic Insurance MEDICARE [facility] MEDICARE
--- OUTSIDE RECORDS SUMMARY | 2025-07-22 11:43 | XMS_ITS | Encounter Summary ---
Author Organization [facility] Address [address] [facility] [place] [address] Care Team Providers Care Network Planner Name Role Phone Unavailable Primary Care Provider Unavailabl e Encounter Details Date Type Department Care Team (Late st Contact Info) Description 04/18/2023 Lab Requisition [facility] - D[facility] Lab [address] [place] [id number] Elsa Lechuga PA-C [address] [place] [address] Neoplasm of uncertain behavior of skin Social History Tobacco Use Types Packs/Day Years Used Date Smoking Tobacco: Never Assessed Sex and Gender Information Value Date Recorded Sex Assigned at Not on file 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 Gender Identity Not on file Sexual Orientation Not on file documented as of this encounter Plan of Treatment Not on file documented as of this encounter Procedures Procedure Name Priority Date/Time Associated Diagnosis Comments DERMATOPATHOLOGY Routine 04/18/2023 12:0 0 AM CDT Neoplasm of uncertain behavior of skin [ICD-10-CM] documented in this encounter Results * DERMATOPATHOLOGY (04/18/2023 12:00 AM CDT) Case Report Dermatopathology Report Case: [id number] Authorizing Provider: Elsa Lechuga PA-C Collected: 04/18/2023 12:00 AM Ordering Location: [facility] Lab Received: 04/19/2023 11:40 AM Pathologist: Carlie Diego MD Specimens: A) - Skin, right antihelix B) - Skin, right anterior shoulder 3:06 PM T DERMATOPATHOLOGY LABORATORY Final Diagnosis Specimen A. 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 SKIN, right anterior shoulder: SEBORRHEIC KERATOSIS, MACULAR (L82.1) 3:06 PM T DERMATOPATHOLOGY LABORATORY at 1506 CDT Clinical History A: Basal Cell Carcinoma vs. Angioma B: Superficial Basal Cell Carcinoma 3:06 PM T DERMATOPATHOLOGY LABORATORY Gross Description Specimen A: Received is one formalin filled container labeled with the patient's name and designated right antihelix. The specimen consists of a shave biopsy measuring 3x3x1 mm. Jar 0. Specimen B: Received is one formalin filled container labeled with the patient's name and designated right anterior shoulder. The specimen consists of a shave biopsy measuring 4x3x1 mm. Jar 0. 3 3:06 PM T DERMATOPATHOLOGY LABORATORY Microscopic Description Specimen A. SKIN, right antihelix: In the dermis there is a well-circumscribed collection of small as well as larger, thin- and thick-walled vessels. Specimen B. SKIN, right anterior shoulder: Sections show a relatively broad, flat proliferation of small keratinocytes. The surface is gently papillated, and there is increased basilar pigmentation. 3:06 PM T DERMATOPATHOLOGY LABORATORY Disclaimer An external and internal positive and negative controls are appropriate for the histochemical, immunohistochemical and immunofluorescence stain(s) in this case (if any), except where stated explicitly. The performance characteristics of the stain(s) cited in this report were developed and its performance characteristic determined by the Dermatopathology Laboratory at [facility], directed by Dr. Alyson Fofana. These tests need not be, and therefore are not, approved by the [place] Food and Drug Administration. The tests are used for clinical purposes. Billing Codes Specimen Charges Stain Charges 30330 15044 1 1 3 3:06 PM CDT DERMATOPATHOLOGY LABORATORY Embedded Images 3:06 PM CDT DERMATOPATHOLOGY LABORATORY Pathology/Cytology TISSUE SPECIMEN FROM SKIN / Unknown 04/18/2023 04/19/2023 11:40 AM CDT Miscellaneous samples (specimen) TISSUE SPECIMEN FROM SKIN / Unknown 04/18/2023 04/19/2023 11:40 AM CDT Elsa Lechuga PA-C LAB - PATHOLOGY/CYTOLOGY ORDE DINESH Final Result DERMATOPATHOLOGY LABORATORY [facility] - Department of Dermatology [facility] [address] [place] [address], [address] [phone] documented in this encounter Visit Diagnoses Diagnosis Neoplasm of uncertain behavior of skin documented in this encounter
--- OUTSIDE RECORDS SUMMARY | 2025-07-22 11:43 | XMS_ITS | Clinical Summary ---
Author Organization [facility] [address] Address [address] [place] [address] Care Team Providers Care Computer Animator Name Role Phone [facility] Primary Care Provider [phone] Allergies Active Allergy Reactions Criticality Noted Date Comments Penicillins Swelling,Edema High 04/27/2016 Medications allopurinol (ZYLOPRIM) 300 mg tablet take 1 tablet by oral route every day 0 0 3 Active aspirin 81 mg tablet take 1 tablet by oral route every day 0 0 3 Active fluticasone propionate (FLONASE) 50 mcg/actuation nasal spray Administer 1 spray into each nostril daily Active nitroglycerin (NITROSTAT) 0.[address] 1 tablet (0.4 mg total) under the tongue every 5 (five) minutes as needed for chest pain (May repeat every 5 minutes up to 15 minutes) May repeat dose q 5 min, up to 3 doses total 25 tablet 11 3 Active lisinopriL (PRINIVIL,ZESTR IL) 20 mg tablet Take 1 tablet (20 mg total) by mouth daily 90 tablet 3 4 Active atorvastatin (LIPITOR) 40 mg tabletIndicatio ns:Coronary artery disease involving gakona coronary artery of gakona heart without angina pectoris Take 1 tablet (40 mg total) by mouth daily 90 tablet 3 4 Active nitroglycerin (NITROLINGUAL) 400 mcg/spray spray Place 1 spray under the tongue every 5 (five) minutes as needed for chest pain 1 g 1 5 Active Active Problems Problem Noted Date Diagnosed Date Angina pectoris, unspecified 01/12/2024 S/P drug eluting coronary stent placement 2016 Coronary artery disease invo lving gakona coronary artery of g[place]ona heart 10/21/2014 Overview (02/18/2017): Coronary arteriosclerosis in g[place]ona artery Lumbago 07/25/2013 Cardiac disease 07/25/2013 Gout, unspecified 07/25/2013 Surgical History Surgery Date Site/Laterality Comments CHOLECYSTECTOMY Cholecystectomy OTHER SURGICAL HISTORY 11/14/2010 - 11/13/2011 Micr-decompression L4 -L5 VASECTOMY 11/14/1981 - 11/13/1982 Vasectomy CORONARY STENT PLACEMENT 05/14/2013 - 06/13/2013 2.75 x 24 mm Promus to the LAD, 2.5 x 16 mm Promus to the OM2. CORONARY STENT PLACEMENT 02/13/2016 - 03/13/2016 3.5 x 15 mm Alpine stent to proximal RCA Medical History Medical History Date Comments Gout Gout Hx Other Medical BPH Osteoarthritis Osteoarthritis Hypertension Kidney stone March 2022 Family History Medical History Relation Name Comments Heart disease Father Lokesh Pfeiffer Heart failure Father Lokesh Pfeiffer Congestive Heart Failure; Cause of : Congestive Heart Failure Other Father Lokesh Pfeiffer CABG & PPM; Heart failure Mother Congestive Hea rt Failure; Cause of : Congestive Heart Failure Relation Name Status Comments Father Lokesh Pfeiffer Alive Mother (Age 92) Social History Tobacco Use Types Packs/Day Years Used Date Smoking Tobacco: Former Cigarettes Q uit: 11/02/1978 Smokeless Tobacco: Never Tobacco Cessation:Counseling Given: Not Answered Alcohol Use Standard Drinks/Week Comments Yes 2 (1 standard drink = 0.6 oz pur e alcohol) Sex and Gender Information Value Date Recorded Sex Assigned at Not on file Legal Sex Male 8:08 PM [facility] Gender Identity Not on file Sexual Orientation Not on file Obstetrics History Last Filed Vital Signs Vital Sign Reading Time Taken Comments Blood Pressure 150/80 02/13/2025 11:26 AM CDT Pulse 63 02/13/2025 11:26 AM CDT Temperature - - Respiratory Rate 16 04/28/2017 10:22 AM CDT Oxygen Saturation 97% 02/13/2025 11:26 AM CDT Inhaled Oxygen Concentration - - Weight 90.7 kg (200 lb) 02/13/2025 11:26 AM CDT Height 177.8 cm (5' 10) 02/13/2025 11:26 AM CDT Body Mass Index 28.7 02/13/2025 11:26 AM CDT Plan of Treatment Health Maintenance Due Date Last Done Comments Depression Screening 1945 Fall Risk Assessment 1945 Hepatitis C Screening 1945 Hepatitis B Screening 1965 Abdominal Aortic Aneurysm (A AA) Screen 2012 Well Visit 65+ 2012 Covid-19 Vaccine (3 - 2023-2 5 season) 2024 01/20/2021, 12/30/2020 Influenza Vaccine (#1) 2025 , 10/01/2021, 08/11/2020, Additional history exists DTaP/Tdap/Td Vaccine (3 - Td or Tdap) 12/09/2032 12/09/2022, 09/11/2010 Pneumococcal vaccine 65+ Completed 2016, 03/2015 Zoster Vaccine Completed 06/19/2020, 11/14, 09/07/2013 Insurance MEDICARE [employer] MEDICARE FOR LIFE Care Teams Computer Animator Relationship Specialty Start Date End Date [facility] [address] [place] [address] PCP - General 07/19/24
--- OUTSIDE RECORDS SUMMARY | 2025-07-22 11:43 | XMS_ITS | Clinical Summary ---
Author Organization [facility] Address [address], [facility] [address] [place] [address] Phone Care Team Providers Care Plumber Name Role Phone Provider, Unknown Primary Care Provider Unavaila Megan Espinosa APRN, HOSPITALIST MEDICAL DIRECTOR Unavailable Allergies Active Allergy Reactions Criticality Noted Date Comments Penicillins Swelling High 04/27/2016 Medications ticagrelor (BRILINTA) 90 MG Tablet Take 90 mg by mouth 2 times daily. Active allopurinol (ZYLOPRIM) 300 MG Tablet Take 300 mg by mouth daily. Active lisinopril (PRINIVIL, ZESTRIL) 20 MG Tablet Take 20 mg by mouth daily. Active aspirin EC 81 MG Tablet Delayed Response Take 81 mg by mouth daily. Active atorvastatin (LIPITOR) 40 MG Tablet Take 40 mg by mouth daily. Active nitroGLYCERIN (NITROSTAT) 0.4 MG SL Tablet 0.4 mg by Sublingual route every 5 minutes as needed for Chest pain. Active traMADol (ULTRAM) 50 MG Tablet Take 50 mg by mouth every 6 hours as needed for Pain. Active Active Problems Problem Noted Date Diagnosed Date Pancreatitis 04/27/2016 Anxiety 04/27/2016 Immunizations Immunization Administration Dates Next Due Covid-19, Mrna, Lnp-s, Pf, 30 Mcg/0.3 Ml Dose (Catrachita webster) 01/20/2021,12/30/2020 Influenza Vaccine greater than 3 yrs 09/28/2016 Family History Medical History Relation Name Comments Heart Disease Father Heart Disease Paternal Grandmother Relation Name Status Comments Father Paternal Grandmother Social History Tobacco Use Types Packs/Day Years Used Date Smoking Tobacco: Former Cigarettes Alcohol Use Standard Drinks/Week Comments Yes 0 (1 standard drink = 0.6 oz pure alcohol) Socially-has a few drinks per week-never a heavy drinker Sex and Gender Information Value Date Recorded Sex Assigned at Not on file Legal Sex Male 1:59 PM CDT Gender Identity Not on file Sexual Orientation Not on file Occupation Industry Job Start Date Job End Date [employer] Not on file Not on file Not on bindu e Last Filed Vital Signs Vital Sign Reading Time Taken Comments Blood Pressure 140/70 11/02/2016 12:48 PM INSURANCE ADJUSTER Pulse 61 11/02/2016 12:48 PM INSURANCE ADJUSTER Temperature 36.6 C (97.9 F) 11/02/2016 12:48 PM INSURANCE ADJUSTER Respiratory Rate 16 11/02/2016 12:48 PM INSURANCE ADJUSTER Oxygen Saturation 97% 11/02/2016 12:48 PM INSURANCE ADJUSTER Inhaled Oxygen Concentration - - Weight 92.1 kg (203 lb) 11/02/2016 12:48 PM INSURANCE ADJUSTER Height 177.8 cm (5' 10) 11/02/2016 12:48 PM INSURANCE ADJUSTER Body Mass Index 29.13 11/02/2016 12:48 PM INSURANCE ADJUSTER Plan of Treatment Health Maintenance Due Date Last Done Comments Hepatitis C Virus (HCV) Screening 1945 TdaP Immunization 1945 Pneumococcal Immunization (5 0+ years) (1 of 1 - PCV) 1997 Zoster Immunization (1 of 2) 1997 Respiratory Syncytial Virus (RSV) Immunization (Adult) (1 - 1-dose 75+ series) 2022 Influenza Immunization (#1) 2025 092 06/2020, 09/28/2016 SARS-COV-2 Immunization (2024- season) 2025 11/04/2021, 01/20/2021, 12/30/2020 Hepatitis B Immunization Aged Out No longer eligible based on patient's age to complete this topic Human Papillomavirus (HPV) Immunization Aged Out No longer eligible b ased on patient's age to complete this topic Meningococcal Immunization (ACWY) Aged Out No longer eligible b ased on patient's age to complete this topic Rotavirus Immunization Aged Out No lo nger eligible based on patient's age to complete this topic Insurance MEDICARE Member Subscriber Plan / Payer (Ef fective for All Dates) Name:Gaurang Valdez Member ID:[id number] Relation to Subscriber:Self Name:GAURANG VALDEZ Subscriber ID:[id number] Payer ID:[id number] Group ID:Not on file Type:Not on file Address: [address] MEDICARE FOR LIFE Care Teams Plumber Relationship Specialty Start Date End Date Provider, Unknown UNKNOWN PCP - General 04/27/16 Megan Marshall, TRUSS BUILDER, HOSPITALIST MEDICAL DIRECTOR UNKNOWN Nurse Practitioner Advanced Practice Nurse 04/27/16
== END 2025-07-22 11:18 | disposition home or self-care (01) ==
PROVIDERS: Visit Provider Urology
DX: N20.1 Calculus of ureter (principal)
CPT/HCPCS: 74018

== ENCOUNTER 2025-09-23 13:32 | Outpatient (CLI) | payer MEDICARE, OTHER, SELFPAY ==
--- NOTE | ~2025-09-23 | CT_ITS ---
CT abdomen pelvis wo con INDICATION:LT Flank pain with history of urolithiasis . COMPARISON: None. TECHNIQUE: Axial 2.5 mm images of the abdomen were obtained without IV or oral contrast. Diagnostic sensitivity is limited due to lack of IV contrast. FINDINGS: The lung bases are clear. The liver parenchyma is unremarkable. 1.7 x 2.5 cm left hepatic lobe cyst. No intrahepatic mass or ductal dilatation is evident. The patient has had a cholecystectomy. The pancreas and spleen are normal in appearance. The adrenal glands are symmetric in size. The kidneys are unremarkable. No intrarenal stones are noted. There is no hydronephrosis. Evaluation of the stomach and bowel loops are limited due to lack of oral contrast. The appendix is normal in appearance. Colonic diverticulosis is noted without evidence of acute diverticulitis. The bladder and rectum are normal. No free intraperitoneal fluid or air is evident. There is no significant retroperitoneal lymphadenopathy. The aorta, visceral vessels and renal arteries demonstrate normal caliber. The lower thoracic and lumbar vertebrae are in normal alignment. IMPRESSION: No acute abnormality is noted in the abdomen and pelvis. Colonic diverticulosis without evidence of acute diverticulitis. All CT scans at this facility are performed using low dose modulation techniques as appropriate to perform exam including the following: automated exposure control; use of iterative reconstruction technique; adjustment of the mA and/or kV according to patient size (this includes techniques or standardized protocols for targeted exams where dose is matched to indication/reason for exam). Reviewed, dictated and finalized at location [facility] IMPRESSION: No acute abnormality is noted in the abdomen and pelvis. Colonic diverticulosis without evidence of acute diverticulitis. All CT scans at this facility are performed using low dose modulation techniqu es as appropriate to perform exam including the following: automated exposure c ontrol; use of iterative reconstruction technique; adjustment of the mA and/or kV according to patient size (this includes techniques or standardized protocol s for targeted exams where dose is matched to indication/reason for exam).
--- OUTSIDE RECORDS SUMMARY | 2025-09-23 13:44 | XMS_ITS | Encounter Summary ---
Author Organization [facility] Address [address] [place] [address] Care Team Providers Care Sanitation Manager Name Role Phone Mehreen Albert DO Primary Care Provider Unava ilable Samir High DO Primary Care Provider Unav ailable Encounter Details Date Type Department Care Team (Late st Contact Info) Description 10/24/2020 Prep for Procedure [facility] Pre-Admission Testing [address] [address] Chuckie Erickson MD Social History Tobacco Use Types Packs/Day Years Used Date Smoking Tobacco: Former Cigarettes 1 1977 Smokeless Tobacco: Never Comments:1977 Alcohol Use Standard Drinks/Week Comments Yes 5 (1 standard drink = 0.6 oz pur e alcohol) PHQ-2 Answer Date Recorded PHQ-2 Score - If the patient scores above 3, please move on to questions 3-9 0 10/02/2020 Sex and Gender Information Value Date Recorded Sex Assigned at Not on file Legal Sex Male 7:05 PM CDT Gender Identity Not on file Sexual Orientation Not on file COVID-19 Exposure Response Date Recorded In the last month, have you been in contact with someone who was confirmed or suspected to have Coronavirus / COVID-19? No / Unsure 10/24/2020 12:25 PM [employer] DE [employer]IE documented as of this encounter Plan of Treatment Not on file documented as of this encounter Results * PRE-SURGICAL/PRE-PROCEDURE CORONAVIRUS (COVID 19) (10/27/2020 11:25 AM CHEF DE PARTIE) CORONAVIRUS SARS COV 2 PCR (RESP) NOT DETECTED NOT DETECTED 10/28/2020 5:41 PM CHEF DE [employer]IE [facility] Comment: A Not Detected (negative) test result for this test means that SARS- CoV-2 RNA was not present in the specimen above the limit of detection. A negative result does not rule out the possibility of COVID-19 and should not be used as the sole basis for treatment or patient management decisions. If COVID-19 is still suspected, based on exposure history together with other clinical findings, re-testing should be considered in consultation with public health authorities. Laboratory test results should always be considered in the context of clinical observations and epidemiological data in making a final diagnosis and patient management decisions. Please review the Fact Sheets and FDA authorized labeling available for health care providers and patients using the following websites: https://www.[employer].writewith/home/Covid-19/HCP/NAAT/fact-sheet2 https://www.[employer].writewith/home/Covid-19/Patients/NAAT/ fact-sheet2 This test has been authorized by the FDA under an Emergency Use Authorization (EUA) for use by authorized laboratories. Due to the current public health emergency, [facility] is receiving a high volume of samples from a wide variety of swabs and media for COVID-19 testing. In order to serve patients during this public health crisis, samples from appropriate clinical sources are being tested. Negative test results derived from specimens received in non-commercially manufactured viral collection and transport media, or in media and sample collection kits not yet authorized by FDA for COVID-19 testing should be cautiously evaluated and the patient potentially subjected to extra precautions such as additional clinical monitoring, including collection of an additional specimen. Methodology: Nucleic Acid Amplification Test (NAAT) includes RT-PCR or TMA Additional information about COVID-19 can be found at the [facility] website: www.[employer].writewith/Covid19. Test performed at [facility] [place] [address] [place] [address] Director: CHRISTINE BAIRD DO,MPH FIRST TEST UNKNOWN 10/27/2020 12:50 PM [facility] EMPLOYED IN HEALTHCARE NO 10/27/2020 12:50 PM [facility] SYMPTOMATIC DEFINED BY CDC NO 10/27/2020 12:50 PM [employer] DE [employer]IE [facility] DATE OF SYMPTOM ONSET NO 10/27/2020 1:03 PM [employer] [facility] HOSPITALIZATION STATUS NO 10/27/2020 12:50 PM [employer] DE [employer]IE [facility] PATIENT IN ICU NO 10/27/2020 12:50 PM [employer] DE [employer]IE [facility] RESIDENT OF CONGREGATE CARE NO 10/27/2020 12:50 PM [employer] DE [employer]IE [facility] NO 10/27/2020 1:03 PM [employer]IE [facility] PATIENT'S RACE WHITE OR 10/27/2020 12:50 PM [employer]IE [facility] ETHNICITY NONHISPANIC 10/27/2020 12:50 PM [employer] SOURCE (QST) NASOPHARYNGEAL SWAB 10/27/2020 12:50 PM [employer] DE [employer]IE [facility] NASOPHARYNGEAL SWAB / Unknown 10/27/2020 11:25 AM [employer] DE [employer]IE us Chuckie Erickson MD MICROBIOLOGY - GENERAL ORDERABLE S Final Result Performing Organization Address City/State/[facility] Co de Phone Number [facility] [address] [place] [address], [place] [phone] [place] [address], documented in this encounter Visit Diagnoses Diagnosis Pre-op exam- Primary Preoperative examination, unspecified documented in this encounter Additional Health Concerns Infection Onset Date Last Indicated Resolved Time COVID-19 Rule Out 10/27/2020 10/27/2020 10/28/2020 5:41 PM CHEF DE [employer]IE Assessment Noted Time PHQ-9 Depression Total Score: 0 10/02/20 20 9:25 AM CHE[employer] DE [employer]IE documented as of this encounter Care Teams Sanitation Manager Relationship Specialty Start Date End Date Mehreen Albert DO PCP - General FAMILY PRACTICE 08/19/20 10/29/20 Samir High DO PCP - General FAMILY PRACTICE 10/30/20 documented as of this encounter
--- OUTSIDE RECORDS SUMMARY | 2025-09-23 13:44 | XMS_ITS | Clinical Summary ---
Author Organization [facility] Address [address] [facility] [address] [place] [address] Phone Care Team Providers Care Busher Helper Name Role Phone Provider, Unknown Primary Care Provider Unavaila Megan Espinosa APRN, COGNOS LEAD Unavailable Allergies Active Allergy Reactions Criticality Noted [...] Comments Blood Pressure 140/70 11/02/2016 12:48 PM DIRT SHOVELER Pulse 61 11/02/2016 12:48 PM DIRT SHOVELER Temperature 36.6 C (97.9 F) 11/02/2016 12:48 PM DIRT SHOVELER Respiratory Rate 16 11/02/2016 12:48 PM DIRT SHOVELER Oxygen Saturation 97% 11/02/2016 12:48 PM DIRT SHOVELER Inhaled Oxygen Concentration - - Weight 92.1 kg (203 lb) 11/02/2016 12:48 PM DIRT SHOVELER Height 177.8 cm (5' 10) 11/02/2016 12:48 PM DIRT SHOVELER Body Mass Index 29.13 11/02/2016 12:48 PM DIRT SHOVELER Plan of Treatment Health Maintenance Due Date Last Done Comments Hepatitis C Virus (HCV) Screening 1945 TdaP Immunization 1945 Pneumococcal Immunization (5 0+ years) (1 of 1 - PCV) 1997 Zoster Immunization (1 of 2) 1997 Medicare Initial AWV [id number] 09/14/2013 Respiratory Syncytial Virus (RSV) Immunization (Adult) (1 - 1-dose 75+ series) 2022 Influenza Immunization (#1) 2025 09/2 06/2020, 09/28/2016 SARS-COV-2 Immunization ( - 2024- season) 2025 11/04/2021, 01/20/2021, 12/30/2020 Hepatitis B [...] age to complete this topic Insurance MEDICARE MEDICARE Member Subscriber Plan / Payer (Ef fective 2012-Present) Name:Gaurang Valdez Member ID:[id number] Relation to Subscriber:Self Name:Gaurang Valdez Subscriber ID:[id number] Payer ID:[id number] Group ID:Not on file Type:Not on file Address: [address] [facility] Care Teams Busher Helper Relationship Specialty Start Date End Date Provider, Unknown UNKNOWN PCP - General 04/27/16 Megan Marshall, PRINCIPAL SOFTWARE ARCHITECT, COGNOS LEAD UNKNOWN Nurse Practitioner Advanced Practice Nurse 04/27/16
--- OUTSIDE RECORDS SUMMARY | 2025-09-23 13:44 | XMS_ITS | Encounter Summary ---
Author Organization [facility] Address [address] [place] [address] Care Team Providers Care Manuscript Editor Name Role Phone RooseveltMehreen Primary Care Provider Unava ilable Samir High DO Primary Care Provider Unav ailable Encounter Details Date Type Department Care Team (Late st Contact Info) Description 09/26/2020 Prep for Procedure [facility] [place], [place] [id number] Ernesto Davidson MD [address] [phone] Social History Tobacco Use Types Packs/Day Years Used Date Smoking Tobacco: Former Smokeless Tobacco: Never Comments:1978 Alcohol Use Standard Drinks/Week Comments Yes 5 (1 standard drink = 0.6 oz pur e alcohol) PHQ-2 Answer Date Recorded PHQ-2 Score 0 09/04/2020 Sex and Gender Information Value Date Recorded Sex Assigned at Not on file Legal Sex Male 7:05 PM CDT Gender Identity Not on file Sexual Orientation Not on file COVID-19 Exposure Response Date Recorded In the last month, have you been in contact with someone who was confirmed or suspected to have Coronavirus / COVID-19? No / Unsure 09/29/2020 11:58 AM ENERGY CONTROL OFFICER documented as of this encounter Plan of Treatment Not on file documented as of this encounter Results * PRE-SURGICAL/PRE-PROCEDURE CORONAVIRUS (COVID 19) (09/26/2020 9:20 AM ENERGY CONTROL OFFICER) CORONAVIRUS SARS COV 2 PCR (RESP) NOT DETECTED NOT DETECTED 09/28/2020 1:55 AM [facility] [place] [facility] Comment: A Not Detected (negative) test result [...] providers and patients using the following websites: https://www.Rock My World.eTutor/home/Covid-19/HCP/QuestIVD/fact- sheet.html https://www.ZoeMob/home/Covid-19/Patients/ QuestIVD/fact-sheet.html This test has been authorized by the FDA under an Emergency Use Authorization (EUA) for use by authorized laboratories. Due to the current public health emergency, [facility] is receiving a high volume of samples [...] about COVID-19 can be found at the [facility] website: www.StoreFlix.eTutor/Covid19. Test performed at [facility] [address] [place] [address] Director: CHRISTINE BAIRD DO,MPH FIRST TEST YES 09/26/2020 11:11 AM [facility] EMPLOYED IN HEALTHCARE NO 09/26/2020 11:11 AM [facility] SYMPTOMATIC DEFINED BY CDC NO 09/26/2020 11:11 AM ENERGY CONTROL OFFICER [facility] DATE OF SYMPTOM ONSET NO 09/26/2020 11:45 AM ENERGY CONTROL OFFICER [facility] HOSPITALIZATION STATUS NO 09/26/2020 11:11 AM ENERGY CONTROL OFFICER [facility] PATIENT IN ICU NO 09/26/2020 11:11 AM ENERGY CONTROL OFFICER [facility] RESIDENT OF [facility] NO 09/26/2020 11:11 AM ENERGY CONTROL OFFICER [facility] NO 09/26/2020 11:45 AM ENERGY CONTROL OFFICER [facility] PATIENT'S RACE WHITE OR 09/26/2020 11:11 AM [facility] ETHNICITY NONHISPANIC 09/26/2020 11:11 AM [facility] SOURCE (QST) NASOPHARYNGEAL SWAB 09/26/2020 11:11 AM [facility] NASOPHARYNGEAL SWAB / Unknown 09/26/2020 9:20 AM ENERGY CONTROL OFFICER Ernesto Davidson MD MICROBIOLOGY - GENERAL ORDERABLE S Final Result [facility] [address] [place] [address], [place] [address] [address], documented in this encounter Visit Diagnoses Diagnosis IBD (inflammatory bowel disease)- Primary Other and unspecified noninfectious gastroenteritis and colitis documented in this encounter Additional Health Concerns Infection Onset Date Last Indicated Resolved Time COVID-19 Rule Out 09/26/2020 09/26/2020 09/28/2020 1:56 AM ENERGY CONTROL OFFICER COVID-19 Rule Out 10/27/2020 10/27/2020 10/28/2020 5:41 PM ENERGY CONTROL OFFICER documented as of this encounter Care Teams Manuscript Editor Relationship Specialty Start Date End Date Mehreen Albert DO PCP - General FAMILY PRACTICE 08/19/20 10/29/20 Samir High DO PCP - General FAMILY PRACTICE 10/30/20 documented as of this encounter
--- OUTSIDE RECORDS SUMMARY | 2025-09-23 13:45 | XMS_ITS | Clinical Summary ---
Author Organization [facility] [address] Address [address] [place] [address] Care Team Providers Care Game Artist Name Role Phone [facility] Primary Care Provider [phone] Allergies Active Allergy Reactions Criticality Noted Date [...] 40 mg tabletIndicatio ns:Coronary artery disease involving [place] coronary artery of [place] heart without angina pectoris Take 1 tablet [...] placement 2016 Coronary artery disease invo lving [place] coronary artery of [place] heart 10/21/2014 Overview (02/18/2017): Coronary arteriosclerosis in [place] artery Lumbago 07/25/2013 Cardiac disease 07/25/2013 Gout, unspecified 07/25/2013 Encounters Date Type Department Care Team Description 09/17/2025 9:15 AM SENIOR CARE ASSISTANT Office Visit [facility] [address] [place] [address] Trevon Perdomo MD Coronary artery disease involving [place] coronary artery of [place] heart without angina pectoris (Primary Dx); S/P drug eluting coronary stent placement 09/02/2025 11:15 AM CDT Ancillary Procedure [facility] [address] [place] [address] Coronary artery disease involving [place] coronary artery of [place] heart without angina pectoris; S/P drug eluting coronary stent placement 08/27/2025 10:00 AM CDT Office Visit [facility] [address] [place] [address] Trevon Perdomo MD Coronary artery disease involving [place] coronary artery of [place] heart without angina pectoris (Primary Dx); S/P drug eluting coronary stent placement from Last 3 Months Surgical History Surgery Date Site/Laterality Comments CHOLECYSTECTOMY [...] Relation Name Comments Heart disease Father Lokesh Valdez Heart failure Father Lokesh Valdez Congestive Heart Failure; Cause of : Congestive Heart Failure Other Father Lokesh Valdez CABG & PPM; Heart failure Mother Congestive Hea rt Failure; Cause of : Congestive Heart Failure Relation Name Status Comments Father Lokesh Valdez Alive Mother (Age 92) Social History Tobacco Use Types Packs/Day Years Used Date Smoking Tobacco: Former Cigarettes Q uit: 11/02/1978 Smokeless Tobacco: Never Tobacco Cessation:Counseling Given: Not Answered Alcohol Use Standard Drinks/Week Comments Yes 2 (1 standard drink = 0.6 oz pur e alcohol) Sex and Gender Information Value Date Recorded Sex Assigned at Not on file Legal Sex Male 8:08 PM SENIOR CARE ASSISTANT Gender Identity Not on file Sexual Orientation Not on file Last Filed Vital Signs Vital Sign Reading Time Taken Comments Blood Pressure 142/70 09/17/2025 9:04 AM SENIOR CARE ASSISTANT Pulse 82 09/17/2025 9:04 AM SENIOR CARE ASSISTANT Temperature - - Respiratory Rate 16 04/28/2017 10:2 2 AM CDT Oxygen Saturation 97% 09/17/2025 9:04 AM SENIOR CARE ASSISTANT Inhaled Oxygen Concentration - - Weight 90.1 kg (198 lb 11.2 oz) 09/17/2025 9:04 AM SENIOR CARE ASSISTANT Height 177.8 cm (5' 10) 09/17/2025 9:04 AM SENIOR CARE ASSISTANT Body Mass Index 28.51 09/17/2025 9:04 AM SENIOR CARE ASSISTANT Plan of Treatment Health Maintenance Due Date Last Done Comments Depression Screening 1945 Fall Risk Assessment 1945 Hepatitis C Screening 1945 Hepatitis B Screening 1965 Abdominal Aortic Aneurysm (A AA) Screen 2012 Well Visit 65+ 2012 Covid-19 Vaccine (3 - 2024-2 6 season) 2025 01/20/2021, 12/30/2020 Influenza Vaccine (#1) 2025 , 10/01/2021, 08/11/2020, Additional history exists DTaP/Tdap/Td Vaccine (3 - Td or Tdap) 12/09/2032 12/09/2022, 09/11/2010 Pneumococcal vaccine 65+ Completed 2016, 03/2015 Zoster Vaccine Completed 06/19/2020, 11/14, 09/07/2013 Procedures Procedure Name Priority Date/Time Associated Diagnosis Comments NM MPI SPECT (REST AND/OR STRESS) MULTIPLE STUDIES Schedule Routine, Read Routine (OP Routine) 09/02/2025 1:32 PM CDT Coronary artery disease involving [place] coronary artery of [place] heart without angina pectoris S/P drug eluting coronary stent placement from Last 3 Months Results * NM MPI SPECT (Rest and/or Stress) Multiple Studies (09/02/2025 1:32 PM CDT) Anatomical Region Laterality Modality Body N/A Nuclear Medicine 09/02/2025 8:06 AM CDT Narrative 09/03/2025 8:21 AM CDT [facility] [address] [facility] [address] [address], [place] [address] [address] [facility] [address], [place] [address], [place] [address] P:[phone] P:[phone] MPI Imaging Report Patient Name: TOMER VALDEZ L : 1945 Study Date: 09/02/2025 8:06:49 AM Sex: M [facility]: [facility] Provider: TREVON PERDOMO Height(Cm): 177.8 BSA: Weight(Kg): 90.3 BMI: 28.56 Order Provider: TREVON PERDOMO PHYSICIAN: Primary Care Physician: [facility] Physician: Trevon Perdomo M.D.,F.A.C.C. Stress Supervision: Loraine Phan M.D., F.A.C.C. Stress Interpreting Physician: Loraine Phan M.D., F.A.C.C. PROCEDURES: Exercise SPECT Report: Myocardial perfusion imaging with Tc99m Sestamibi SPECT at rest and stress post exercise using the Aamir protocol. INDICATIONS: Hypertension, Family Hx CAD, Former Smoker, CARLSON, I25.10 Atherosclerotic heart disease of [place] coronary artery without angina pectoris, and Z95.5 Presence of coronary angioplasty implant and graft. FINDINGS: Procedure: One day rest/stress protocol was used. Tc99m Sestamibi injected IV at rest was 10.9 millicuries 32.1 millicuries of Tc99m Sestamibi injected IV at peak stress Patient had no symptoms during stress test. Baseline heart rate was 59 BPM Peak heart rate was 141 BPM Max projected heart rate was 143 Percent predicted max heart rate achieved was 99 % Exercise Time 8:00 min Baseline blood pressure was 172/68 mmHg Peak blood pressure 194/82 mmHg Termination: Leg fatigue. Exercise Tolerance: Good for patient's age. Resting ECG: Sinus rhythm. RBBB. Post ECG: Findings do not meet strict criteria for ischemia. Arrhythmia: Occasional APCs. Perfusion Findings: Normal perfusion imaging. No definite fixed or reversible defects. Technical quality of study is excellent. Prone imaging was not performed. Left ventricle cavity size at rest is normal. Left ventricle cavity size with stress is unchanged. A TID of 0.74 was automatically calculated. LV Function: Global left ventricular function is normal. Left Ventricular Ejection Fraction is 69 %. CONCLUSIONS: Myocardial perfusion imaging is normal. Global left ventricular function is normal. Left Ventricular Ejection Fraction is 69 %. Negative exercise EKG stress test for ischemia. Electronically Signed By: Kwaku Willson MD 09/02/2025 4:04:00 PM CDT Electronically Signed By: Dr. Loraine Phan [facility] 09/03/2025 8:03:00 AM CDT Procedure Note Loraine Phan MD - 09/03/2025 [facility] Cardiology [address], [place] [address] [address] [facility] [address], [place] [address] [address], [place] [address] P:[phone] P:[phone] MPI Imaging Report Patient Name: TOMER VALDEZ L : 1945 Study Date: 09/02/2025 8:06:49 AM Sex: M Tech: [facility] Location: [facility] Provider: TREVON PERDOMO Height(Cm): 177.8 BSA: Weight(Kg): 90.3 BMI: 28.56 Order Provider: TREVON PERDOMO PHYSICIAN: Primary Care Physician: [facility] Physician: Trevon Perdomo M.D.,SabrinaCNormanCNorman Stress Supervision: Loraine Phan M.D., FNormanA.CNormanCNorman Stress Interpreting Physician:Loraine Phan M.D., FJabierCBennett PROCEDURES: Exercise SPECT Report: Myocardial perfusion imaging with Tc99m Sestamibi SPECT at rest and stresspost exercise using the Aamir protocol. INDICATIONS: Hypertension, Family Hx CAD, Former Smoker, [place]LS[place], I25.10 Atheroscleroticheart disease of [place] coronary artery without angina pectoris, and Z95.5 Presence ofcoronary angioplasty implant and graft. FINDINGS: Procedure: One day rest/stress protocol was used. Tc99m Sestamibi injected IV at rest was 10.9 millicuries 32.1 millicuries of Tc99m Sestamibi injected IV at peak stress Patient had no symptoms during stress test. Baseline heart rate was 59 BPM Peak heart rate was 141 BPM Max projected heart rate was 143 Percent predicted max heart rate achieved was 99 % Exercise Time 8:00 min Baseline blood pressure was 172/68 mmHg Peak blood pressure 194/82 mmHg Termination: Leg fatigue. Exercise Tolerance: Good for patient's age. Resting ECG: Sinus rhythm. RBBB. Post ECG: Findings do not meet strict criteria for ischemia. Arrhythmia: Occasional APCs. Perfusion Findings: Normal perfusion imaging. No definite fixed or reversible defects.Technical quality of study is excellent. Prone imaging was not performed. Left ventricle cavitysize at rest is normal. Left ventricle cavity size with stress is unchanged. A TID of0.74 was automatically calculated. LV Function: Global left ventricular function is normal. Left Ventricular EjectionFraction is 69 %. CONCLUSIONS: Myocardial perfusion imaging is normal. Global left ventricular function is normal. Left Ventricular EjectionFraction is 69 %. Negative exercise EKG stress test for ischemia. Electronically Signed By: Kwaku Willson MD 09/02/2025 4:04:00 PM CDT Electronically Signed By: Dr. Loraine Phan [facility] 09/03/2025 8:03:00 AM CDT Trevon Perdomo MD IMG NM PROCEDURES Final Result from Last 3 Months Insurance MEDICARE [employer] MEDICARE FOR LIFE Care Teams Game Artist Relationship Specialty Start Date End Date [facility] [address] [place] [address] PCP - General 07/19/24
--- OUTSIDE RECORDS SUMMARY | 2025-09-23 13:45 | XMS_ITS | Clinical Summary ---
Author Organization [facility] Address [address] [place] [address] Care Team Providers Care Autoclave Operator Name Role Phone Unavailable Primary Care Provider Unavailabl e Source Comments [facility],non-owned Affiliates and Associated Physician Practices is amultiple site organization consisting of ambulatory clinics and hospital sitesin [place], [place], [place] and [place]. This disclosure is being madepursuant to the Care Everywhere program and may not contain all information available regarding this patient. 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
--- OUTSIDE RECORDS SUMMARY | 2025-09-23 13:45 | XMS_ITS | Encounter Summary ---
Author Organization [facility] Address [address] [place] [address] Care Team Providers Care Charter Representative Name Role Phone Unavailable Primary Care Provider Unavailabl e Encounter Details Date Type Department Care Team (Late st Contact Info) Description 04/18/2023 Lab Requisition [facility] - DermPath Lab [address] [facility] [place] [id number] Elsa Lechuga PA-C [address] [place] [address] Neoplasm of uncertain behavior of skin Social History Tobacco Use Types Packs/Day Years Used Date Smoking Tobacco: Never Assessed Sex and Gender Information Value Date Recorded Sex Assigned at Not on file 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 Alyson Fofana. These tests need not be, and therefore are not, approved by the [place] Food and Drug Administration. The tests are used for clinical purposes. Billing Codes Specimen Charges Stain Charges 97466 [id number] 1 1 3 3:06 PM CDT DERMATOPATHOLOGY LABORATORY Embedded Images 3:06 PM CDT DERMATOPATHOLOGY LABORATORY Pathology/Cytology TISSUE SPECIMEN FROM SKIN / Unknown 04/18/2023 04/19/2023 11:40 AM CDT Miscellaneous samples (specimen) TISSUE SPECIMEN FROM SKIN / Unknown 04/18/2023 04/19/2023 11:40 AM CDT Elsa Lechuga PA-C LAB - PATHOLOGY/CYTOLOGY ORDE DINESH Final Result DERMATOPATHOLOGY LABORATORY [facility] - Department of Dermatology [facility] [address] [place] [address], [address] [phone] documented in this encounter Visit Diagnoses Diagnosis Neoplasm of uncertain behavior of skin documented in this encounter
--- OUTSIDE RECORDS SUMMARY | 2025-09-23 13:45 | XMS_ITS | Clinical Summary ---
Author Organization [facility] Address [address] [place] [address] Care Team Providers Care Superintendent Gas Distribution Name Role Phone Samir High DO Primary Care Provider Unav ailable Allergies Active Allergy Reactions Criticality Noted Date Comments Penicillins Swelling High 04/27/2016 Other reaction(s): Swelling, Medications allopurinol 300 MG tablet Take 300 mg by mouth daily. 05/24/2013 Active atorvastatin 40 MG tablet Take 40 mg by mouth daily. 11/01/2019 Active fluticasone propionate 50 MCG/ACT nasal spray 1 spray by Nasal route as needed. 12/13/2019 Active lisinopril 20 MG tablet Take 20 mg by mouth daily. 11/01/2019 Active nitroglycerin 0.[address] 0.4 mg under the tongue as needed. 01/13/2018 Active aspirin EC (ASPIRIN EC) 81 MG tablet Take 81 mg by mouth daily. Active acetaminophen 500 MG tablet Take 500 mg by mouth. Active chlorhexidine 0.12 % solution 04/16/2021 Act julito traMADol 50 MG tablet Take 50 mg by mouth every 6 (six) hours as needed for Pain. Active ibuprofen 200 MG tablet Take 200 mg by mouth every 6 (six) hours as needed for Pain. Active finasteride 5 MG tabletIndication s:Elevated prostate specific antigen (PSA) Take 1 tablet (5 mg total) by mouth daily. 90 tablet 1 04/16/2022 Active Active Problems Problem Noted Date Diagnosed Date Irritable bowel syndrome 09/11/2020 Overview (09/11/2020): Added automatically from request for surgery [id number] S/P drug eluting coronary stent placement 2016 Anxiety 04/27/2016 Pancreatitis 04/27/2016 Coronary artery disease invo lving [place] coronary artery of [place] heart 10/21/2014 Overview (04/20/2021): Coronary arteriosclerosis in [place] artery Cardiac disease 07/25/2013 Gout, unspecified 07/25/2013 Lumbago 07/25/2013 Immunizations Immunization Administration Dates Next Due Fluzone High Dose - >Age 65 (Prefilled Syringe) 08/11/2020 Influenza (Generic) 09/28/2016 Influenza Adult (Generic) 09/28/2016 Family History Medical History Relation Comments Heart Father GI Mother Relation Status Comments Father Mother Social History Tobacco Use Types Packs/Day Years Used Date Smoking Tobacco: Former Cigarettes 1 15 1 3 - 1977 Smokeless Tobacco: Never Comments:1977 Alcohol Use Standard Drinks/Week Comments Yes 5 (1 standard drink = 0.6 oz pur e alcohol) PHQ-2 Answer Date Recorded PHQ-2 Score - If the patient scores above 3, please move on to questions 3-9 0 10/20/2021 Sex and Gender Information Value Date Recorded Sex Assigned at Not on file Legal Sex Male 7:05 PM CDT Gender Identity Not on file Sexual Orientation Not on file Last Filed Vital Signs Vital Sign Reading Time Taken Comments Blood Pressure 136/62 10/20/2021 11:07 AM NEGATIVE DEVELOPER Pulse 60 10/20/2021 11:07 AM NEGATIVE DEVELOPER Temperature 36.2 C (97.2 F) 10/20/2021 11:07 AM NEGATIVE DEVELOPER Respiratory Rate 18 10/20/2021 11:07 AM NEGATIVE DEVELOPER Oxygen Saturation 98% 10/20/2021 11:07 AM NEGATIVE DEVELOPER Inhaled Oxygen Concentration - - Weight 92.1 kg (203 lb) 10/20/2021 11:07 AM NEGATIVE DEVELOPER Height 177.8 cm (5' 10) 10/20/2021 11:07 AM NEGATIVE DEVELOPER Body Mass Index 29.13 10/20/2021 11:07 AM NEGATIVE DEVELOPER Plan of Treatment Health Maintenance Due Date Last Done Comments ASCVD LDL 1945 ASCVD Statin 1945 Hepatitis C 1965 DTaP, Tdap and Td Vaccines ( 1 - Tdap) 1966 Pneumococcal Vaccine: 50+ Years (1 of 2 - PCV) 1966 Zoster Vaccines (1 of 2) 1997 Annual Medicare Wellness Visit 2012 RSV Immunization or 60+ Years (1 - 1-dose 75+ series) 2022 COVID-19 Vaccine (3 - 2024-2 6 season) 2025 01/20/2021, 12/30/2020 Influenza Adult (#1) 2025 08/11/2020, 09/28/2016, 09/28/2016 Colorectal Cancer Screening Colonoscopy (10 Years) Discontinued 09/29/2020 Hepatitis A Vaccines Aged Out No long er eligible based on patient's age to complete this topic Meningococcal B Vaccine Aged Out No l onger eligible based on patient's age to complete this topic Meningococcal Vaccine Aged Out No kareem zamzam eligible based on patient's age to complete this topic RSV Immunizations Under 20 Months Aged Out No longer eligible based on patient's age to complete this topic Medical Devices Implanted Type Area Proration Clerk Device Identifier Shelf Expiration Date Model / Serial / Lot Stent Stent Heart Insurance MEDICARE [facility] [employer] Care Teams Superintendent Gas Distribution Relationship Specialty Start Date End Date Samir High DO PCP - General FAMILY PRACTICE 10/30/20
== END 2025-09-23 13:33 | disposition home or self-care (01) ==
PROVIDERS: Visit Provider Physician Assistant Medical
DX: K57.30 Diverticulosis of large intestine without perforation or abscess without bleeding (principal)
CPT/HCPCS: 74176